=== PATIENT | male | born 1975 | race Two or more races ===

== ENCOUNTER → 2020-06-15 09:21 | Outpatient (BNVA) | payer OTHER, SELFPAY | PROVIDERS: PCP Internal Medicine; Referring Provider Internal Medicine; Visit Provider Internal Medicine | DX: E11.65 Type 2 diabetes mellitus with hyperglycemia (principal); E78.5 Hyperlipidemia, unspecified; I10 Essential (primary) hypertension; Z79.84 Long term (current) use of oral hypoglycemic drugs; Z71.3 Dietary counseling and surveillance | CPT/HCPCS: 99212 ==

== ENCOUNTER 2020-09-09 11:50 | Outpatient (REF) | payer OTHER, SELFPAY ==
[2020-09-09 13:31] LABS: Alanine Aminotransferase 40 U/L (0-40); Albumin Level 4.4 g/dL (3.5-5.0); Alkaline Phosphatase 73 U/L (39-117); Aspartate Amino Transferase 26 U/L (5-37); Bilirubin Total 0.6 mg/dL (0.0-1.0); Blood Urea Nitrogen 15 mg/dL (9-16); Calcium 9.2 mg/dL (8.4-10.2); Carbon Dioxide 28 mmol/L (22-29); Cholesterol 111 mg/dL; Estimated Glomerular Filt Rate > 60; Glucose Random 239 mg/dL (60-115); HDL Cholesterol 34 mg/dL; LDL Cholesterol Calculated 56 mg/dl; Potassium 4.8 mmol/l (3.3-5.1); Sodium 137 mmol/L (135-145); Total Protein 7.4 g/dL (6.5-8.0); Triglycerides 109 mg/dL
[2020-09-09 13:32] LABS: Vitamin B12 413 pg/mL (200-900)
[2020-09-09 13:42] LABS: Anion Gap 3 (12-20); Chloride 111 mmol/L (96-108)
[2020-09-09 13:47] LABS: Estimated Average Glucose 203 mg/dL; Hemoglobin A1c % 8.7 %
[2020-09-10 11:03] LABS: LDL Cholesterol Direct 68 mg/dL (<100)
== END 2020-09-09 11:51 | disposition home or self-care (01) ==
LOC: HO.LAB 11:50
PROVIDERS: Internal Medicine; PCP Internal Medicine; Visit Provider Internal Medicine
DX: E11.9 Type 2 diabetes mellitus without complications (principal); E66.01 Morbid (severe) obesity due to excess calories; I10 Essential (primary) hypertension; R14.0 Abdominal distension (gaseous)
CPT/HCPCS: 36415; 80053; 80061; 82607; 83036; 83721; 87338

== ENCOUNTER 2021-01-04 10:41 | Outpatient (REF) | payer OTHER, SELFPAY ==
[2021-01-04 12:08] LABS: Estimated Average Glucose 206 mg/dL; Hemoglobin A1c % 8.8 %
[2021-01-04 12:20] LABS: Alanine Aminotransferase 62 U/L (0-40); Albumin Level 4.6 g/dL (3.5-5.0); Alkaline Phosphatase 83 U/L (39-117); Anion Gap 14 (12-20); Aspartate Amino Transferase 38 U/L (5-37); Bilirubin Total 0.8 mg/dL (0.0-1.0); Blood Urea Nitrogen 13 mg/dL (9-16); Calcium 9.5 mg/dL (8.4-10.2); Carbon Dioxide 27 mmol/L (22-29); Chloride 102 mmol/L (96-108); Estimated Glomerular Filt Rate > 60; Glucose Random 167 mg/dL (60-115); Potassium 4.3 mmol/L (3.3-5.1); Sodium 139 mmol/L (135-145); Total Protein 7.9 g/dL (6.5-8.0)
== END 2021-01-04 10:42 | disposition home or self-care (01) ==
LOC: HO.LAB 10:41
PROVIDERS: PCP Internal Medicine; Visit Provider Internal Medicine
DX: E11.65 Type 2 diabetes mellitus with hyperglycemia (principal); B96.81 Helicobacter pylori [H. pylori] as the cause of diseases classified elsewhere
CPT/HCPCS: 36415; 80053; 83036

== ENCOUNTER 2021-04-10 12:58 | Emergency (ER) | payer OTHER, SELFPAY ==
[2021-04-10 15:36] VITALS: BP 93/59; PULSE 84; RESP 16; TEMP 36.6; O2SAT 94; BMI 41.1
--- NOTE | 2021-04-10 15:40 | ECG_ITS ---
Test Reason : CRAMP Blood Pressure : / mmHG Vent. Rate : 085 BPM Atrial Rate : 085 BPM P-R Int : 162 ms QRS Dur : 090 ms QT Int : 378 ms P-R-T Axes : 036 -02 -01 degrees QTc Int : 449 ms Normal sinus rhythm Minimal voltage criteria for LVH, may be normal variant Borderline ECG When compared with ECG of 28-MAY-2019 14:04, No significant change was found Referred By: Generic ED Physician Electronically Signed By:MIRIAN SERNA
[2021-04-10 15:52] LABS: MANUAL DIFF FLAG NO
[2021-04-10 16:03] LABS: Basophils Percent Auto 0.3 % (0-2); Eosinophils Absolute Auto 0.1 X10*3/uL (0.0-0.4); Eosinophils Percent Auto 0.4 % (0-4); Hematocrit 49.5 % (42-52); Hemoglobin 17.1 g/dl (14.0-18.0); Imm Gran Abs Auto 0.04 X10*3/uL (0.00-0.03); Imm Gran Pct Auto 0.3 % (0.0-0.4); Lymphocytes Absolute Auto 2.3 X10*3/uL (1.2-4.9); Lymphocytes Percent Auto 19.6 % (20-40); Mean Corpuscular HGB Conc 34.5 g/dl (31.0-36.0); Mean Corpuscular Hemoglobin 29.3 pg (27.0-33.0); Mean Corpuscular Volume 84.8 fL (80-98); Mean Platelet Volume 11.3 fL (9.4-12.4); Monocytes Absolute Auto 0.7 X10*3/uL (0.1-1.2); Monocytes Percent Auto 5.6 % (2-11); Neutrophils Absolute Auto 8.7 X10*3/uL (2.0-8.3); Neutrophils Percent Auto 73.8 % (45-73); Platelet Count 230 X10*3/uL (160-400); Red Blood Count 5.84 X10*6/uL (4.60-5.80); Red Cell Distribution Width 12.5 % (11.0-16.0); White Blood Count 11.8 X10*3/uL (4.8-10.8)
[2021-04-10 16:23] LABS: Lactic Acid 2.5 mmol/L (0.5-2.0)
[2021-04-10 16:25] LABS: Alanine Aminotransferase 46 U/L (0-40); Albumin Level 4.9 g/dL (3.5-5.0); Alkaline Phosphatase 74 U/L (39-117); Anion Gap 17 (12-20); Aspartate Amino Transferase 36 U/L (5-37); Bilirubin Total 0.9 mg/dL (0.0-1.0); Blood Urea Nitrogen 33 mg/dL (9-16); Calcium 10.5 mg/dL (8.4-10.2); Carbon Dioxide 25 mmol/L (22-29); Chloride 98 mmol/L (96-108); Creatinine Clr Calc Pharmacy 57.3; Estimated Glomerular Filt Rate 40; Glucose Random 175 mg/dL (60-115); Magnesium 2.4 mg/dL (1.6-2.6); Sodium 135 mmol/L (135-145); Total Protein 8.4 g/dL (6.5-8.0)
[2021-04-10 16:26] LABS: Troponin-I High Sensitivity < 3.5 ng/L (<3.5-35.0)
[2021-04-10 17:50] LABS: Reflex Lactate? Lactic Acid Added
[2021-04-10 18:39] LABS: ~Lactic Acid-LAB USE ONLY 1.8 mmol/L (0.5-2.0)
--- NOTE | 2021-04-10 20:00 | ED.GENADULT ---
HPI - General Adult General Chief complaint: General Medical Stated complaint: cramps Time Seen by Provider: 04/10/21 19:49 Source: patient Mode of arrival: ambulatory Limitations: no limitations History of Present Illness HPI narrative: 46 y/o male with history of DM, HTN, HLD, depression who presents to the ER with diffuse body cramping for the last 2 days. He reports with minimal movement his muscles cramp up. He feels like he is dehydrated. He tries to drink as much water a he can throughout the day but he reports being prone to dehydration with this heat and humidity. He has always had issues with excessive sweating since he can remember. He denies fever, chills, SOB, chest pain, abdominal pain, N/V/D. MD complaint: muscle cramping Onset (ago): day(s) (2) Location: back, buttocks, left, right and lower extremity Radiation: non-radiation Severity: severe Quality: aching Pain Consistency: intermittent Relieving factors: rest Exacerbating factors: movement Associated symptoms: denies other symptoms Treatments prior to arrival: none Related Data Home Medications Medication Instructions Recorded Confirmed alcohol swabs 0 pad TOPICAL 06/15/20 06/15/20 blood sugar diagnostic #10 ea 06/15/20 06/15/20 clonazepam 1 mg tablet 1 mg PO TID PRN 06/15/20 06/15/20 empagliflozin 25 mg tablet 25 mg PO DAILY 06/15/20 06/15/20 estazolam 2 mg tablet 2 mg PO BEDTIME PRN 06/15/20 06/15/20 glycopyrrolate 1 mg tablet 1 mg PO BEDTIME PRN tab 06/15/20 06/15/20 lancets 28 gauge #100 ea 06/15/20 06/15/20 lisinopril 20 1 tab PO DAILY 06/15/20 06/15/20 mg-hydrochlorothiazide 25 mg tablet metformin 500 mg tablet,extended 1,000 mg PO BID 06/15/20 06/15/20 release 24 hr sertraline 100 mg tablet 100 mg PO DAILY 06/15/20 06/15/20 Previous Rx's Medication Instructions Recorded sitagliptin 100 mg tablet (Januvia) 100 mg PO DAILY 30 Days #30 tab 06/01/20 atorvastatin 40 mg tablet 40 mg PO DAILY 30 Days #30 tab 06/15/20 blood sugar diagnostic (Blood #100 ea 06/27/20 Glucose Test) cholecalciferol (vitamin D3) 50 50 mcg PO DAILY 30 Days #30 tab 07/21/20 mcg (2,000 unit) tablet Allergies Allergy/AdvReac Type Severity Reaction Status Date / Time No Known Allergies Allergy Verified 06/15/20 09:17 [No Known Allergies*] Review of Systems Review of Systems: Constitutional: No Fever, No Chills ENT/Mouth: No sore throat, No Rhinorrhea, No Swallowing Difficulty Cardiovascular: No Chest Pain, No SOB Respiratory: No Cough, No Sputum Gastrointestinal: No Nausea, No Vomiting, No Diarrhea, No abdominal Pain Genitourinary: No Dysuria, No Urinary Frequency, No Hematuria Musculoskeletal: No joint pain, + Myalgias Skin: No Skin Lesions, No rash Neuro: No Weakness, No Numbness, No Dizziness, No Headache PMFSH Past Medical History Attestation statement: The following information was validated with the patient. Medical History Depression HLD (hyperlipidemia) HTN (hypertension) T2DM (type 2 diabetes mellitus) Surgical History Hx of arthroscopy Hx of hernia repair Family History Family History Father Alcoholism Diabetes mellitus HTN (hypertension) Mother No problems noted. Sister Diabetes mellitus Social History Social History Advance Directives: No Advance Directives Information Provided: No Physical Exam Vital Signs: Vital Signs: Last Vital Signs Temp 97.9 F 04/10/21 15:36 Pulse 80 04/10/21 21:57 Resp 16 04/10/21 21:57 BP 119/70 04/10/21 21:57 Pulse Ox 98 04/10/21 21:57 Body Mass Index 41.1 Appearance: Alert. Oriented X3. No acute distress. Eyes: Pupils equal, round and reactive to light. ENT: Pharynx normal. Neck: Normal inspection. Neck supple. CVS: Normal heart rate and rhythm. Pulses normal. Respiratory: No respiratory distress. Breath sounds normal. Abdomen: Soft and nontender. +BS x4 Skin: Skin warm and dry. Normal skin color. Normal skin turgor. No rashes. Extremities: No lower extremity edema. Neuro: Oriented X 3. No motor deficit. No sensory deficit. Course Course Course Narrative: 46 y/o male presenting with muscle cramping and concerns for dehydration. Labs showing NIKO with BUN/Cr 33/1.82. Lactic acid 2.5 which normalized to 1.8 without intervention. Not septic. His Mg++ and K+ are normal. CK 277. Will plan to hydrate with IVF and reassess. Reevaluation(s) Reevaluation #1: Patient given 2 L IVF and he is feeling much better. Urine is clear yellow. He will follow up with his doctor for repeat labs within 1 week. Stable for d/c home. Medical Decision Making Lab Data Result diagrams: 04/10/21 15:47 04/10/21 15:47 Labs: Lab Results 04/10/21 04/10/21 04/10/21 Range/Units 15:47 15:47 15:47 WBC 11.8 H (4.8-10.8) X10*3/uL RBC 5.84 H (4.60-5.80) X10*6/uL Hgb 17.1 (14.0-18.0) g/dl Hct 49.5 (42-52) % MCV 84.8 (80-98) fL MCH 29.3 (27.0-33.0) pg MCHC 34.5 (31.0-36.0) g/dl RDW 12.5 (11.0-16.0) % Plt Count 230 (160-400) X10*3/uL MPV 11.3 (9.4-12.4) fL Immature Gran % (Auto) 0.3 (0.0-0.4) % Neut % (Auto) 73.8 H (45-73) % Lymph % (Auto) 19.6 L (20-40) % [place] % (Auto) 5.6 (2-11) % Eos % (Auto) 0.4 (0-4) % Baso % (Auto) 0.3 (0-2) % Lymph # (Auto) 2.3 (1.2-4.9) X10*3/uL [place] # (Auto) 0.7 (0.1-1.2) X10*3/uL Eos # (Auto) 0.1 (0.0-0.4) X10*3/uL Baso # (Auto) 0.0 (0.0-0.2) X10*3/uL Abs Immat Gran (auto) 0.04 H (0.00-0.03) X10*3/uL Absolute Neuts (auto) 8.7 H (2.0-8.3) X10*3/uL Absolute Nucleated RBC 0.000 (0.0-0.012) X10*3/uL Nucleated RBC % (auto) 0.0 (0.0-0.2) /100WBC Sodium 135 (135-145) mmol/L Potassium 5.0 (3.3-5.1) mmol/L Chloride 98 (96-108) mmol/L Carbon Dioxide 25 (22-29) mmol/L Anion Gap 17 (12-20) BUN 33 H D (9-16) mg/dL Creatinine 1.82 H (0.5-1.4) mg/dL Estim Creat Clear Calc 57.3 Estimated GFR 40 Random Glucose 175 H (60-115) mg/dL Lactic Acid 2.5 H* (0.5-2.0) mmol/L Lactic Acid Fup @ 2Hr (0.5-2.0) mmol/L Calcium 10.5 H D (8.4-10.2) mg/dL Magnesium 2.4 (1.6-2.6) mg/dL Total Bilirubin 0.9 (0.0-1.0) mg/dL AST 36 (5-37) U/L ALT 46 H (0-40) U/L Alkaline Phosphatase 74 (39-117) U/L Total Creatine Kinase (38-174) U/L Troponin I High Sens (<3.5-35.0) ng/L Total Protein 8.4 H (6.5-8.0) g/dL Albumin 4.9 (3.5-5.0) g/dL Urine Color Urine Appearance Urine pH (5.0-8.0) Ur Specific [place] (1.005-1.025) Urine Protein (NEG-TRACE) MG/DL Urine Glucose (UA) (NEG) MG/DL Urine Ketones (NEG) MG/DL Urine Blood (NEG) Urine Nitrite (NEG) Ur Leukocyte Esterase (NEG) Urine RBC (0) /HPF Urine WBC (0-4) /HPF Ur Squamous Epith Cells /LPF Urine Bacteria /LPF Coronavirus (PCR) (Negative) Influenza Type A (PCR) (Negative) Influenza Type B (PCR) (Negative) RSV RNA Qual (PCR) (Negative) 04/10/21 04/10/21 04/10/21 Range/Units 15:47 15:47 18:11 WBC (4.8-10.8) X10*3/uL RBC (4.60-5.80) X10*6/uL Hgb (14.0-18.0) g/dl Hct (42-52) % MCV (80-98) fL MCH (27.0-33.0) pg MCHC (31.0-36.0) g/dl RDW (11.0-16.0) % Plt Count (160-400) X10*3/uL MPV (9.4-12.4) fL Immature Gran % (Auto) (0.0-0.4) % Neut % (Auto) (45-73) % Lymph % (Auto) (20-40) % [place] % (Auto) (2-11) % Eos % (Auto) (0-4) % Baso % (Auto) (0-2) % Lymph # (Auto) (1.2-4.9) X10*3/uL [place] # (Auto) (0.1-1.2) X10*3/uL Eos # (Auto) (0.0-0.4) X10*3/uL Baso # (Auto) (0.0-0.2) X10*3/uL Abs Immat Gran (auto) (0.00-0.03) X10*3/uL Absolute Neuts (auto) (2.0-8.3) X10*3/uL Absolute Nucleated RBC (0.0-0.012) X10*3/uL Nucleated RBC % (auto) (0.0-0.2) /100WBC Sodium (135-145) mmol/L Potassium (3.3-5.1) mmol/L Chloride (96-108) mmol/L Carbon Dioxide (22-29) mmol/L Anion Gap (12-20) BUN (9-16) mg/dL Creatinine (0.5-1.4) mg/dL Estim Creat Clear Calc Estimated GFR Random Glucose (60-115) mg/dL Lactic Acid (0.5-2.0) mmol/L Lactic Acid Fup @ 2Hr 1.8 (0.5-2.0) mmol/L Calcium (8.4-10.2) mg/dL Magnesium (1.6-2.6) mg/dL Total Bilirubin (0.0-1.0) mg/dL AST (5-37) U/L ALT (0-40) U/L Alkaline Phosphatase (39-117) U/L Total Creatine Kinase 277 H (38-174) U/L Troponin I High Sens < 3.5 (<3.5-35.0) ng/L Total Protein (6.5-8.0) g/dL Albumin (3.5-5.0) g/dL Urine Color Urine Appearance Urine pH (5.0-8.0) Ur Specific [place] (1.005-1.025) Urine Protein (NEG-TRACE) MG/DL Urine Glucose (UA) (NEG) MG/DL Urine Ketones (NEG) MG/DL Urine Blood (NEG) Urine Nitrite (NEG) Ur Leukocyte Esterase (NEG) Urine RBC (0) /HPF Urine WBC (0-4) /HPF Ur Squamous Epith Cells /LPF Urine Bacteria /LPF Coronavirus (PCR) (Negative) Influenza Type A (PCR) (Negative) Influenza Type B (PCR) (Negative) RSV RNA Qual (PCR) (Negative) 04/10/21 04/10/21 Range/Units 20:16 20:17 WBC (4.8-10.8) X10*3/uL RBC (4.60-5.80) X10*6/uL Hgb (14.0-18.0) g/dl Hct (42-52) % MCV (80-98) fL MCH (27.0-33.0) pg MCHC (31.0-36.0) g/dl RDW (11.0-16.0) % Plt Count (160-400) X10*3/uL MPV (9.4-12.4) fL Immature Gran % (Auto) (0.0-0.4) % Neut % (Auto) (45-73) % Lymph % (Auto) (20-40) % [place] % (Auto) (2-11) % Eos % (Auto) (0-4) % Baso % (Auto) (0-2) % Lymph # (Auto) (1.2-4.9) X10*3/uL [place] # (Auto) (0.1-1.2) X10*3/uL Eos # (Auto) (0.0-0.4) X10*3/uL Baso # (Auto) (0.0-0.2) X10*3/uL Abs Immat Gran (auto) (0.00-0.03) X10*3/uL Absolute Neuts (auto) (2.0-8.3) X10*3/uL Absolute Nucleated RBC (0.0-0.012) X10*3/uL Nucleated RBC % (auto) (0.0-0.2) /100WBC Sodium (135-145) mmol/L Potassium (3.3-5.1) mmol/L Chloride (96-108) mmol/L Carbon Dioxide (22-29) mmol/L Anion Gap (12-20) BUN (9-16) mg/dL Creatinine (0.5-1.4) mg/dL Estim Creat Clear Calc Estimated GFR Random Glucose (60-115) mg/dL Lactic Acid (0.5-2.0) mmol/L Lactic Acid Fup @ 2Hr (0.5-2.0) mmol/L Calcium (8.4-10.2) mg/dL Magnesium (1.6-2.6) mg/dL Total Bilirubin (0.0-1.0) mg/dL AST (5-37) U/L ALT (0-40) U/L Alkaline Phosphatase (39-117) U/L Total Creatine Kinase (38-174) U/L Troponin I High Sens (<3.5-35.0) ng/L Total Protein (6.5-8.0) g/dL Albumin (3.5-5.0) g/dL Urine Color YELLOW Urine Appearance CLEAR Urine pH 5.5 (5.0-8.0) Ur Specific [place] 1.010 (1.005-1.025) Urine Protein NEG (NEG-TRACE) MG/DL Urine Glucose (UA) >=1000 H (NEG) MG/DL Urine Ketones NEG (NEG) MG/DL Urine Blood NEG (NEG) Urine Nitrite NEG (NEG) Ur Leukocyte Esterase NEG (NEG) Urine RBC 0 (0) /HPF Urine WBC 0 (0-4) /HPF Ur Squamous Epith Cells NONE /LPF Urine Bacteria NONE /LPF Coronavirus (PCR) NEGATIVE (Negative) Influenza Type A (PCR) NEGATIVE (Negative) Influenza Type B (PCR) NEGATIVE (Negative) RSV RNA Qual (PCR) NEGATIVE (Negative) ECG Data Attestation: I personally reviewed and interpreted this ECG as follows: Interpretation: normal sinus rhythm, HR 85 bpm. normal [place] interval, no ST segment elevations or depressions. Critical Care Time Critical Care Time Critical Care Time: No Discharge Plan Discharge Clinical Impression: Acute dehydration, NIKO (acute kidney injury) Patient Disposition: Home, Self-Care Instructions: Dehydration (ED), Acute Kidney Injury (DC) Additional Instructions: Drink plenty of fluids. Follow up with your doctor within 1 week to repeat your electrolytes and kidney function. If you develop new or worsening symptoms call 911 or come back to the ER for further evaluation. Prescriptions: No Action Januvia 100 mg tablet 100 mg PO DAILY 30 Days Qty: 30 RF: 11 (DME) Blood Glucose Test Strip See Rx Instructions .ROUTE .MEDSUPPLY Qty: 100 RF: 11 cholecalciferol (vitamin D3) 50 mcg (2,000 unit) tablet 50 mcg PO DAILY 30 Days Qty: 30 RF: 11 Jardiance 25 mg tablet 25 mg PO DAILY RF: 0 (DME) lancets 28 gauge misc See Rx Instructions ea topical .MEDSUPPLY Qty: 100 RF: 0 metformin 500 mg tablet extended release 24 hr 1,000 mg PO BID RF: 0 alcohol swabs Pads, Medicated 0 pad topical RF: 0 lisinopril-hydrochlorothiazide 20-25 mg tablet 1 tab PO DAILY RF: 0 (DME) FreeStyle Lite Strips Strip See Rx Instructions ea Not Applicable .MEDSUPPLY Qty: 10 RF: 0 sertraline 100 mg tablet 100 mg PO DAILY RF: 0 clonazepam 1 mg tablet 1 mg PO TID PRNRF: 0 estazolam 2 mg tablet 2 mg PO BEDTIME PRNRF: 0 glycopyrrolate 1 mg tablet 1 mg PO BEDTIME PRNRF: 0 atorvastatin 40 mg tablet 40 mg PO DAILY 30 Days Qty: 30 RF: 11 Referrals: Irma Rebolledo MD [Primary Care Provider] - 5 days (mild NIKO, dehydration) Interventions: ED Discharge Assessment Last Done: 04/10/21 22:39 Discharge Date/Time: 04/10/21 22:40
[2021-04-10] MEDS: 0.9 % Sodium Chloride 1,000 ML 999 ML IVCONT ×2 (20:18→20:28)
[2021-04-10 20:23] LABS: Glucose Urine UA >=1000 MG/DL (NEG); Leukocyte Esterase Urine NEG (NEG); Nitrite Urine NEG (NEG); PH 5.5 (5.0-8.0); Urine Blood NEG (NEG); Urine Ketones NEG (NEG); Urine Protein NEG (NEG-TRACE)
[2021-04-10 20:25] LABS: Appearance Urine CLEAR; Color Urine YELLOW
[2021-04-10 20:31] LABS: RBC Urine 0 /HPF (0); WBC Urine 0 /HPF (0-4)
[2021-04-10 21:03] LABS: Influenza A PCR NEGATIVE (Negative); Influenza B PCR NEGATIVE (Negative); Resp Syncy Virus RNA Qual PCR NEGATIVE (Negative); SARS COV2 PCR INHOUSE NEGATIVE (Negative)
[2021-04-10 21:57] VITALS: BP 119/70; PULSE 80; RESP 16; O2SAT 98
== END 2021-04-10 22:40 | disposition home or self-care (01) ==
PROVIDERS: Physician Assistant; Emergency Provider Internal Medicine; PCP Internal Medicine
DX: E86.0 Dehydration (principal); R25.2 Cramp and spasm; N17.9 Acute kidney failure, unspecified; I10 Essential (primary) hypertension; Z20.822 Contact with and (suspected) exposure to COVID-19; Z79.899 Other long term (current) drug therapy
CPT/HCPCS: 0241U; 36415; 80053; 81001; 82550; 83605; 83735; 84484; 85025; 93005; 96360; 99284

== ENCOUNTER 2021-04-28 11:23 | Outpatient (REF) | payer OTHER, SELFPAY ==
[2021-04-28 11:54] LABS: MANUAL DIFF FLAG NO
[2021-04-28 11:58] LABS: Basophils Percent Auto 0.1 % (0-2); Eosinophils Absolute Auto 0.1 X10*3/uL (0.0-0.4); Eosinophils Percent Auto 0.7 % (0-4); Imm Gran Abs Auto 0.02 X10*3/uL (0.00-0.03); Imm Gran Pct Auto 0.3 % (0.0-0.4); Lymphocytes Absolute Auto 1.6 X10*3/uL (1.2-4.9); Lymphocytes Percent Auto 21.3 % (20-40); Mean Corpuscular HGB Conc 34.1 g/dl (31.0-36.0); Mean Corpuscular Hemoglobin 29.4 pg (27.0-33.0); Mean Corpuscular Volume 86.3 fL (80-98); Mean Platelet Volume 10.9 fL (9.4-12.4); Monocytes Absolute Auto 0.3 X10*3/uL (0.1-1.2); Monocytes Percent Auto 4.4 % (2-11); Neutrophils Absolute Auto 5.6 X10*3/uL (2.0-8.3); Neutrophils Percent Auto 73.2 % (45-73); Platelet Count 177 X10*3/uL (160-400); Red Cell Distribution Width 12.3 % (11.0-16.0); White Blood Count 7.7 X10*3/uL (4.8-10.8)
[2021-04-28 12:08] LABS: Estimated Average Glucose 220 mg/dL; Hemoglobin A1c % 9.3 %
[2021-04-28 12:19] LABS: Alanine Aminotransferase 49 U/L (0-40); Albumin Level 4.5 g/dL (3.5-5.0); Alkaline Phosphatase 64 U/L (39-117); Anion Gap 11 (12-20); Aspartate Amino Transferase 35 U/L (5-37); Bilirubin Total 0.8 mg/dL (0.0-1.0); Blood Urea Nitrogen 13 mg/dL (9-16); Carbon Dioxide 30 mmol/L (22-29); Chloride 104 mmol/L (96-108); Cholesterol 103 mg/dL; Estimated Glomerular Filt Rate > 60; Glucose Random 141 mg/dL (60-115); HDL Cholesterol 30 mg/dL; LDL Cholesterol Calculated 53 mg/dl; Potassium 4.7 mmol/L (3.3-5.1); Sodium 140 mmol/L (135-145); Total Protein 7.6 g/dL (6.5-8.0); Triglycerides 103 mg/dL
[2021-04-28 13:01] LABS: Creatinine Urine 76.15 mg/dL; Microalbum/Creatinine Ratio Ur 14.4 ug/mg cr
== END 2021-04-28 11:24 | disposition home or self-care (01) ==
LOC: HO.LAB 11:23
PROVIDERS: PCP Internal Medicine; Visit Provider Internal Medicine
DX: E11.65 Type 2 diabetes mellitus with hyperglycemia (principal); E78.00 Pure hypercholesterolemia, unspecified; B96.81 Helicobacter pylori [H. pylori] as the cause of diseases classified elsewhere; G47.33 Obstructive sleep apnea (adult) (pediatric); I10 Essential (primary) hypertension; R74.01 Elevation of levels of liver transaminase levels
CPT/HCPCS: 36415; 80053; 80061; 82043; 83036; 85025

== ENCOUNTER → 2021-08-21 10:00 | Outpatient (BNVA) | payer OTHER, SELFPAY | PROVIDERS: PCP Internal Medicine; Visit Provider Internal Medicine | CPT/HCPCS: Q3014 ==

== ENCOUNTER 2021-11-16 13:20 | Outpatient (REF) | payer OTHER, SELFPAY ==
[2021-11-16 14:15] LABS: Estimated Average Glucose 169 mg/dL; Hemoglobin A1c % 7.5 %
[2021-11-16 14:32] LABS: Creatinine Urine 180.05 mg/dL; Microalbum/Creatinine Ratio Ur 8.8 ug/mg cr
[2021-11-16 14:35] LABS: Alanine Aminotransferase 58 U/L (0-40); Albumin Level 4.8 g/dL (3.5-5.0); Alkaline Phosphatase 62 U/L (39-117); Anion Gap 11 (12-20); Aspartate Amino Transferase 42 U/L (5-37); Bilirubin Total 0.7 mg/dL (0.0-1.0); Blood Urea Nitrogen 15 mg/dL (9-16); Calcium 10.3 mg/dL (8.4-10.2); Carbon Dioxide 32 mmol/L (22-29); Chloride 101 mmol/L (96-108); Cholesterol 124 mg/dL; Estimated Glomerular Filt Rate 56; Glucose Random 83 mg/dL (60-115); HDL Cholesterol 38 mg/dL; LDL Cholesterol Calculated 69 mg/dl; Potassium 4.9 mmol/L (3.3-5.1); Sodium 139 mmol/L (135-145); Total Protein 8.2 g/dL (6.5-8.0); Triglycerides 87 mg/dL
[2021-11-17 17:22] LABS: LDL Cholesterol Direct 74 mg/dL (<100)
== END 2021-11-16 13:21 | disposition home or self-care (01) ==
LOC: HO.LAB 13:20
PROVIDERS: Absent Provider Internal Medicine; PCP Internal Medicine; Visit Provider Internal Medicine
DX: E11.65 Type 2 diabetes mellitus with hyperglycemia (principal); E78.00 Pure hypercholesterolemia, unspecified; I10 Essential (primary) hypertension
CPT/HCPCS: 36415; 80053; 80061; 82043; 83036; 83721

== ENCOUNTER 2021-12-04 18:52 | Emergency (ER) | payer OTHER, SELFPAY ==
--- NOTE | ~2021-12-04 | XR_ITS ---
EXAMINATION: XR RIBS, RIGHT CLINICAL INFORMATION: Fall. Rib pain. COMPARISON: None TECHNIQUE: 3 views of the right ribs were obtained. PA view of the chest. FINDINGS: Lungs are clear. No consolidation, pneumothorax, or pleural effusion. The cardiomediastinal silhouette and pulmonary vasculature are normal. Osseous structures are unremarkable. A marker overlies the lower right ribs. Ribs are intact. No fractures are identified. XR/XR ribs RT min 3V w CXR1V IMPRESSION: Clear lungs. No focal rib abnormality identified.
--- NOTE | ~2021-12-04 | CT_ITS ---
EXAMINATION: CT CHEST, ABDOMEN AND PELVIS WITH CONTRAST. CLINICAL INFORMATION: Reason for Exam fall abd pain r/o rib fx and bleeding . COMPARISON: No pertinent prior studies are available for comparison. TECHNIQUE: Multidetector volumetric imaging was performed from the thoracic inlet through the pubic symphysis following the administration of: Oral contrast: No Intravenous contrast: 85 mL Omnipaque 350 No contrast reaction reported Sagittal and coronal reformatted images were obtained on the technologist workstation. This CT examination was performed using dose optimization techniques as appropriate, variously including the following: *Automated exposure control *Adjustment of mA and/or kV according to patient size (this includes techniques or standardized protocols for targeted exams where dose is matched to indication/reason for exam; i.e. extremities or head) *Use of iterative reconstruction technique Total exam dose-length product 1250 mGy-cm FINDINGS: CHEST: VASCULAR: The aorta is normal; no evidence of dissection, aneurysm, or traumatic aortic injury. The central pulmonary arteries enhance normally. AORTIC ISTHMUS: Normal. MEDIASTINUM: No mediastinal fluid or hematoma. No hilar or mediastinal lymphadenopathy. LUNG: No nodules, mass, or focal consolidation. PLEURA: No pleural effusion. No pneumothorax. No pleural mass or thickening. CHEST WALL/AXILLA: Moderate bilateral gynecomastia is present. ABDOMEN/PELVIS : LIVER : The liver is enlarged measuring just under 20 cm in greatest cephalocaudad dimension.. It also demonstrates decreased attenuation with focal fatty sparing consistent with hepatic steatosis. No focal hepatic lesion or biliary ductal dilatation is present. GALLBLADDER, AND BILIARY TREE The gallbladder is unremarkable with no evidence of radiopaque gallstones, gallbladder wall thickening, or obvious pericholecystic inflammatory changes. PANCREAS: Normal; no mass or surrounding fluid. SPLEEN: Normal size. No focal lesion. ADRENAL GLANDS: Normal; no mass. KIDNEYS AND URETERS: The kidneys are normal in size, shape, and attenuation. No hydronephrosis, hydroureter, or calculi. URINARY BLADDER: No focal mass or wall thickening seen. No bladder calculi. GASTROINTESTINAL TRACT: Stomach and small bowel non-dilated. No colonic wall thickening or pericolonic inflammatory changes. Although the appendix is not definitely seen, there are no right lower quadrant inflammatory changes to suggest acute appendicitis. There is a fatty ovoid area lateral to the descending colon which may represent old infarcted epiploic appendage. VASCULAR STRUCTURES: There is no evidence of aortic or iliac injury. The inferior vena cava is intact. ACTIVE BLEEDING: No. LYMPH NODES: No lymphadenopathy. The aorta is unremarkable. PELVIC VISCERA: Unremarkable. FREE FLUID: None. ABDOMINAL WALL: A left inguinal hernias present containing only fat. OSSEOUS STRUCTURES : No clavicle or scapula fracture. No displaced rib fracture seen. No sternal fracture seen. Normal sagittal alignment of the thoracic and lumbar spine. Vertebral body and disc heights are maintained; no compression fracture. Posterior elements intact. No sacral or pelvic fracture, The visualized hips are intact. CT/CT abdomen pelvis w con IMPRESSION: 1. No evidence of a traumatic injury in the chest abdomen or pelvis. 2. Incidental findings as described
[2021-12-04 20:32] VITALS: BP 158/108; PULSE 102; RESP 20; TEMP 37.1; O2SAT 96; BMI 40.8
--- NOTE | 2021-12-04 21:12 | ED.FALL ---
HPI - Fall General Chief Complaint: Fall Stated Complaint: fell back, right leg, right side pain Time Seen by Provider: 12/04/21 21:10 Source: patient Mode of arrival: ambulatory Limitations: no limitations History of Present Illness HPI Narrative: This is a 46-year-old male past medical history significant for hyperlipidemia, hypertension, diabetes presenting to the emergency department with complaints of right-sided rib pain since Saturday, 3 days ago. Patient tells me was at the bar, tripped over a step, falling onto his right side. Immediately started experiencing pain to the area. He also reports that since Saturday he has noted that his abdomen has been more distended than usual and this is not normal for him. He reports severe sharp pain to his right side. He denies chest pain, shortness of breath, nausea, vomiting, abdominal pain, fevers, chills, headache, vision changes. When he fell he did not his head no loss of consciousness. MD complaint: fall Onset (ago): day(s) (3) Fall from: standing Fall witnessed: no Place fall occurred: other (Bar) Loss of consciousness: none Prolonged down time: no Symptoms prior to fall: none Context: tripped/slipped Severity: moderate Quality: sharp Associated symptoms (after fall): denies Related Data Home Medications Medication Instructions Recorded Confirmed alcohol swabs 0 pad TOPICAL 06/15/20 08/21/21 clonazepam 1 mg tablet 1 mg PO TID PRN 06/15/20 08/21/21 empagliflozin 25 mg tablet 25 mg PO DAILY 06/15/20 08/21/21 estazolam 2 mg tablet 2 mg PO BEDTIME PRN 06/15/20 08/21/21 glycopyrrolate 1 mg tablet 1 mg PO BEDTIME PRN tab 06/15/20 08/21/21 lisinopril 20 1 tab PO DAILY 06/15/20 08/21/21 mg-hydrochlorothiazide 25 mg tablet metformin 500 mg tablet,extended 1,000 mg PO BID 06/15/20 08/21/21 release 24 hr sertraline 100 mg tablet 100 mg PO DAILY 06/15/20 08/21/21 amlodipine 5 mg tablet 5 mg PO DAILY 08/21/21 08/21/21 blood sugar diagnostic (FreeStyle 08/21/21 08/21/21 Lite Strips) blood-glucose meter (FreeStyle 08/21/21 08/21/21 Lite Meter) diclofenac sodium 75 mg 75 mg PO BID 08/21/21 08/21/21 tablet,delayed release dulaglutide 0.75 mg/0.5 mL 0.75 mg SUBCUT QWEEK ml 08/21/21 08/21/21 subcutaneous pen injector (Trulicity) glimepiride 4 mg tablet 4 mg PO DAILY 08/21/21 08/21/21 lancets 28 gauge #100 ea 08/21/21 08/21/21 omeprazole 40 mg capsule,delayed 40 mg PO DAILY 08/21/21 08/21/21 release Previous Rx's Medication Instructions Recorded sitagliptin 100 mg tablet (Januvia) 100 mg PO DAILY 30 Days #30 tab 06/01/20 cholecalciferol (vitamin D3) 50 50 mcg PO DAILY 30 Days #30 tab 07/21/20 mcg (2,000 unit) tablet atorvastatin 40 mg tablet 40 mg PO DAILY 30 Days #30 tab 08/02/21 cyclobenzaprine 10 mg tablet 10 mg PO BEDTIME PRN #7 tab 12/05/21 lidocaine 5 % topical patch 1 patch TOPICAL DAILY PRN #15 ea 12/05/21 naproxen 500 mg tablet 500 mg PO BID #14 tab 12/05/21 Allergies Allergy/AdvReac Type Severity Reaction Status Date / Time No Known Allergies Allergy Verified 08/21/21 12:37 [No Known Allergies*] Review of Systems Review of Systems: Constitutional : No Weight loss, No Fever, No Chills, No Fatigue, No Malaise ENT/Mouth : No sore throat, No Rhinorrhea Eyes: No Eye Pain, No Swelling, No Redness Cardiovascular : No Chest Pain, No SOB, No Dyspnea on Exertion, No Orthopnea, No Edema, No Palpitations Respiratory : No Cough, No Sputum, No Wheezing Gastrointestinal : No Nausea, No Vomiting, No Diarrhea, No Constipation, No abdominal Pain, No Hematochezia, No Melena Genitourinary : No Dysuria, No Urinary Frequency, No Hematuria, Musculoskeletal : No joint pain, No Myalgias, No Joint Swelling Skin : No Skin Lesions, No rash Neuro : No Weakness, No Numbness, No Dizziness, No Headache Psych : No Anxiety/Panic, No Depression All other systems reviewed and are negative Yes all other systems are reviewed and are negative FOR[facility]LY [facility] Past Medical History Attestation statement: The following information was validated with the patient. Source: old records reviewed and nursing notes reviewed Medical History Depression HLD (hyperlipidemia) HTN (hypertension) T2DM (type 2 diabetes mellitus) Surgical History Hx of arthroscopy Hx of hernia repair Family History Family History Father Alcoholism Diabetes mellitus HTN (hypertension) Mother No problems noted. Sister Diabetes mellitus Social History Social History Alcohol intake: current Alcohol intake frequency: holidays/special occasions only Patient Tobacco Use Status: Never used Tobacco Advance Directives: No Advance Directives Information Provided: No Physical Exam Vital Signs: Vital Signs: Last Vital Signs Temp 98.7 F 12/04/21 20:32 Pulse 85 12/05/21 00:34 Resp 18 12/05/21 00:50 BP 129/93 H 12/05/21 00:34 Pulse Ox 96 12/05/21 00:34 BMI result Body Mass Index 40.8 Patient is noted to be hypertensive however he did not take his blood pressure medications. I will give him his blood pressure medications here Appearance: Alert.? Oriented X3.? No acute distress.? Head: Normocephalic, atraumatic, no step-offs or deformities Eyes: Pupils equal, round and reactive to light.? ENT: Pharynx normal.? Neck: Normal inspection.? Neck supple.? CVS: Normal heart rate and rhythm.? Pulses normal.? Respiratory: No respiratory distress.? Breath sounds normal.? Abdomen: Soft and nontender.? Skin: Skin warm and dry.? Normal skin color.? Normal skin turgor.? Extremities: No lower extremity edema.? No calf ttp. 5/5 strength to bilateral upper and lower extremities Musculoskeletal: Pain to palpation to right side, overlying the right ribs. No step-offs or deformities, no flail chest noted no paroxysmal breathing. Neuro: Oriented X 3.? No motor deficit.? No sensory deficit. CN 2-12 intact Course Reevaluation(s) Reevaluation #1: CBC within normal limits. Patient is noted to have an elevated bilirubin, transaminases slightly elevated however this appears to be his baseline when compared to previous labs on 11/16/2021. COVID negative. CT of the abdomen, pelvis and chest with no evidence of traumatic injury. No evidence of rib fractures. No evidence of appendicitis, cholecystitis, fractured ribs. Enlarged liver is noted. Pending urine. Will treat patient for musculoskeletal pain with cyclobenzaprine, naproxen and lidocaine patches. Time: 01:09 Reevaluation #2: At time of discharge patient tells me he feels much better. He is still having some discomfort to his right flank however improved. Denies chest pain, shortness of breath, nausea, vomiting upon discharge. Urine is clean. Will be discharged home with PCP follow-up. He will be treated for musculoskeletal pain. Comfortable discharge home Time: 01:45 MDM - Fall MDM Narrative Medical decision making narrative: 2225 46 yo m presents w/ right sided hip pain s/p trip and fall onto his right side 3 days ago PE in his palpation of right side/overlying right-sided ribs. Plan at this time is imaging, lab work to rule out rib fractures,. Unlikely that this is an pneumothorax, breath sounds appreciated bilaterally. Medical Records Attestation: I reviewed the patient's medical records. Lab Data Attestation: I reviewed the patient's lab results. Result diagrams: 12/04/21 21:45 12/04/21 21:45 Labs: Lab Results 12/04/21 12/04/21 12/04/21 Range/Units 21:45 21:45 21:46 WBC 8.2 (4.8-10.8) X10*3/uL RBC 5.52 (4.60-5.80) X10*6/uL Hgb 15.9 (14.0-18.0) g/dl Hct 47.5 (42.0-52.0) % MCV 86.1 (80.0-98.0) fL MCH 28.8 (27.0-33.0) pg MCHC 33.5 (31.0-36.0) g/dl RDW 13.1 (11.0-16.0) % Plt Count 180 (160-400) X10*3/uL MPV 10.4 (9.4-12.4) fL Immature Gran % (Auto) 0.2 (0.0-0.4) % Neut % (Auto) 62.6 (45-73) % Lymph % (Auto) 29.0 (20-40) % Duchesne % (Auto) 6.3 (2-11) % Eos % (Auto) 1.7 (0-4) % Baso % (Auto) 0.2 (0-2) % Lymph # (Auto) 2.4 (1.2-4.9) X10*3/uL Duc[place]ne # (Auto) 0.5 (0.1-1.2) X10*3/uL Eos # (Auto) 0.1 (0.0-0.4) X10*3/uL Baso # (Auto) 0.0 (0.0-0.2) X10*3/uL Abs Immat Gran (auto) 0.02 (0.00-0.03) X10*3/uL Absolute Neuts (auto) 5.1 (2.0-8.3) x10*3/uL Absolute Nucleated RBC 0.000 (0.0-0.012) X10*3/uL Nucleated RBC % (auto) 0.0 (0.0-0.2) /100WBC Sodium 139 (135-145) mmol/L Potassium 4.0 (3.3-5.1) mmol/L Chloride 101 (96-108) mmol/L Carbon Dioxide 27 (22-29) mmol/L Anion Gap 15 (12-20) BUN 15 (9-16) mg/dL Creatinine 1.14 (0.5-1.4) mg/dL Estim Creat Clear Calc 87.9 Estimated GFR > 60 Random Glucose 103 (60-115) mg/dL Calcium 9.6 D (8.4-10.2) mg/dL Magnesium 2.1 (1.6-2.6) mg/dL Total Bilirubin 1.2 H (0.0-1.0) mg/dL AST 54 H (5-37) U/L ALT 59 H (0-40) U/L Alkaline Phosphatase 66 (39-117) U/L Total Protein 8.0 (6.5-8.0) g/dL Albumin 4.7 (3.5-5.0) g/dL Urine Color Urine Appearance Urine pH (5.0-8.0) Ur Specific [place] (1.005-1.025) Urine Protein (NEG-TRACE) MG/DL Urine Glucose (UA) (NEG) MG/DL Urine Ketones (NEG) MG/DL Urine Blood (NEG) Urine Nitrite (NEG) Ur Leukocyte Esterase (NEG) COVID-19 (MAYUR) Negative (Negative) COVID-19 Clin Com See Note 12/05/21 Range/Units 01:31 WBC (4.8-10.8) X10*3/uL RBC (4.60-5.80) X10*6/uL Hgb (14.0-18.0) g/dl Hct (42.0-52.0) % MCV (80.0-98.0) fL MCH (27.0-33.0) pg MCHC (31.0-36.0) g/dl RDW (11.0-16.0) % Plt Count (160-400) X10*3/uL MPV (9.4-12.4) fL Immature Gran % (Auto) (0.0-0.4) % Neut % (Auto) (45-73) % Lymph % (Auto) (20-40) % Duc[place]ne % (Auto) (2-11) % Eos % (Auto) (0-4) % Baso % (Auto) (0-2) % Lymph # (Auto) (1.2-4.9) X10*3/uL [place] # (Auto) (0.1-1.2) X10*3/uL Eos # (Auto) (0.0-0.4) X10*3/uL Baso # (Auto) (0.0-0.2) X10*3/uL Abs Immat Gran (auto) (0.00-0.03) X10*3/uL Absolute Neuts (auto) (2.0-8.3) x10*3/uL Absolute Nucleated RBC (0.0-0.012) X10*3/uL Nucleated RBC % (auto) (0.0-0.2) /100WBC Sodium (135-145) mmol/L Potassium (3.3-5.1) mmol/L Chloride (96-108) mmol/L Carbon Dioxide (22-29) mmol/L Anion Gap (12-20) BUN (9-16) mg/dL Creatinine (0.5-1.4) mg/dL Estim Creat Clear Calc Estimated GFR Random Glucose (60-115) mg/dL Calcium (8.4-10.2) mg/dL Magnesium (1.6-2.6) mg/dL Total Bilirubin (0.0-1.0) mg/dL AST (5-37) U/L ALT (0-40) U/L Alkaline Phosphatase (39-117) U/L Total Protein (6.5-8.0) g/dL Albumin (3.5-5.0) g/dL Urine Color YELLOW Urine Appearance CLEAR Urine pH 6.5 (5.0-8.0) Ur Specific [place] <= 1.005 (1.005-1.025) Urine Protein NEG (NEG-TRACE) MG/DL Urine Glucose (UA) 500 H (NEG) MG/DL Urine Ketones 5 (NEG) MG/DL Urine Blood NEG (NEG) Urine Nitrite NEG (NEG) Ur Leukocyte Esterase NEG (NEG) COVID-19 (MAYUR) (Negative) COVID-19 Clin Com Critical Care Time Critical Care Time Critical Care Time: No Discharge Plan Discharge Clinical Impression: Right flank pain Patient Disposition: Home, Self-Care Instructions: Flank Pain (ED) Additional Instructions: Take your medications as prescribed. If you were prescribed antibiotics today, it is important that you take your medication to their entirety, do not skip any doses, do not finish them early. Follow-up with your primary care provider this week. Return to the emergency department with new or worsening symptoms. Such as fevers, chills, chest pain, shortness of breath, nausea, vomiting, dizziness, headache, vision changes, lethargy In case of emergency call 911 CT/CT chest w con IMPRESSION: 1.? No evidence of a traumatic injury in the chest abdomen or pelvis. 2.? Incidental findings as described ? Urine showed no signs of infection. Prescriptions: New cyclobenzaprine 10 mg tablet 10 mg PO BEDTIME PRN (Reason: muscle spasm) Qty: 7 0RF lidocaine 5 % adhesive patch,medicated 1 patch topical DAILY PRN (Reason: pain) Qty: 15 0RF Rx Instructions: leave on most painful area for up to 12 hrs naproxen 500 mg tablet 500 mg PO BID Qty: 14 0RF No Action Januvia 100 mg tablet 100 mg PO DAILY 30 Days Qty: 30 11RF cholecalciferol (vitamin D3) 50 mcg (2,000 unit) tablet 50 mcg PO DAILY 30 Days Qty: 30 11RF atorvastatin 40 mg tablet 40 mg PO DAILY 30 Days Qty: 30 2RF Jardiance 25 mg tablet 25 mg PO DAILY 0RF metformin 500 mg tablet extended release 24 hr 1,000 mg PO BID 0RF alcohol swabs Pads, Medicated 0 pad topical 0RF lisinopril-hydrochlorothiazide 20-25 mg tablet 1 tab PO DAILY 0RF sertraline 100 mg tablet 100 mg PO DAILY 0RF clonazepam 1 mg tablet 1 mg PO TID PRN0RF estazolam 2 mg tablet 2 mg PO BEDTIME PRN0RF glycopyrrolate 1 mg tablet 1 mg PO BEDTIME PRN0RF (DME) lancets 28 gauge misc See Rx Instructions ea topical .MEDSUPPLY Qty: 100 0RF Rx Instructions: As directed test blood sugar at least 3 times a day Trulicity 0.75 mg/0.5 mL pen injector 0.75 mg subcut QWEEK 0RF amlodipine 5 mg tablet 5 mg PO DAILY 0RF diclofenac sodium 75 mg tablet,delayed release (DR/EC) 75 mg PO BID 0RF glimepiride 4 mg tablet 4 mg PO DAILY 0RF omeprazole 40 mg capsule,delayed release(DR/EC) 40 mg PO DAILY 0RF (DME) blood-glucose meter [FreeStyle Lite Meter] Kit See Rx Instructions .Route 0RF Rx Instructions: As directed test blood sugar at least 3 times a day (DME) FreeStyle Lite Strips Strip See Rx Instructions .Route 0RF Rx Instructions: As directed test blood sugar at least 3 times a day Referrals: Irma Rebolledo MD [Primary Care Provider] - 2 days Stand Alone Forms: Work/School Release
[2021-12-04 21:18] VITALS: BP 163/105; PULSE 82; RESP 18; O2SAT 97
[2021-12-04] MEDS: amLODIPine Besylate 5 MG TABLET PO (21:50)
[2021-12-04] MEDS: lisinopriL 20 MG TABLET PO (21:50)
[2021-12-04 21:52] LABS: MANUAL DIFF FLAG NO
[2021-12-04 21:54] LABS: Basophils Percent Auto 0.2 % (0-2); Eosinophils Absolute Auto 0.1 X10*3/uL (0.0-0.4); Eosinophils Percent Auto 1.7 % (0-4); Hematocrit 47.5 % (42.0-52.0); Hemoglobin 15.9 g/dl (14.0-18.0); Imm Gran Abs Auto 0.02 X10*3/uL (0.00-0.03); Imm Gran Pct Auto 0.2 % (0.0-0.4); Lymphocytes Absolute Auto 2.4 X10*3/uL (1.2-4.9); Mean Corpuscular HGB Conc 33.5 g/dl (31.0-36.0); Mean Corpuscular Hemoglobin 28.8 pg (27.0-33.0); Mean Corpuscular Volume 86.1 fL (80.0-98.0); Mean Platelet Volume 10.4 fL (9.4-12.4); Monocytes Absolute Auto 0.5 X10*3/uL (0.1-1.2); Monocytes Percent Auto 6.3 % (2-11); Neutrophils Absolute Auto 5.1 x10*3/uL (2.0-8.3); Neutrophils Percent Auto 62.6 % (45-73); Platelet Count 180 X10*3/uL (160-400); Red Blood Count 5.52 X10*6/uL (4.60-5.80); Red Cell Distribution Width 13.1 % (11.0-16.0); White Blood Count 8.2 X10*3/uL (4.8-10.8)
[2021-12-04 22:10] LABS: COVID-19 Test Negative (Negative)
[2021-12-04 22:11] LABS: Alanine Aminotransferase 59 U/L (0-40); Albumin Level 4.7 g/dL (3.5-5.0); Alkaline Phosphatase 66 U/L (39-117); Anion Gap 15 (12-20); Aspartate Amino Transferase 54 U/L (5-37); Bilirubin Total 1.2 mg/dL (0.0-1.0); Blood Urea Nitrogen 15 mg/dL (9-16); Calcium 9.6 mg/dL (8.4-10.2); Carbon Dioxide 27 mmol/L (22-29); Chloride 101 mmol/L (96-108); Creatinine Clr Calc Pharmacy 87.9; Estimated Glomerular Filt Rate > 60; Glucose Random 103 mg/dL (60-115); Magnesium 2.1 mg/dL (1.6-2.6); Sodium 139 mmol/L (135-145)
[2021-12-04] MEDS: LORazepam 1 MG TABLET PO (22:43)
[2021-12-05] MEDS: iohexoL 350 MG/ML 100 ML INFUS..BTL 85 ML IV (00:01)
[2021-12-05 00:34] VITALS: BP 129/93; PULSE 85; RESP 17; O2SAT 96
[2021-12-05] MEDS: Lidocaine 4 % Patch ADH..PATCH 1 PATCH TRANSDERMA (00:36)
[2021-12-05 00:50] VITALS: RESP 18
[2021-12-05] MEDS: Morphine Sulfate 2 MG/ML CARTRIDGE IVPUSH (00:50)
[2021-12-05 01:36] LABS: Appearance Urine CLEAR; Color Urine YELLOW; Glucose Urine UA 500 MG/DL (NEG); Leukocyte Esterase Urine NEG (NEG); Nitrite Urine NEG (NEG); PH 6.5 (5.0-8.0); Specific Gravity - Urine <= 1.005 (1.005-1.025); Urine Blood NEG (NEG); Urine Ketones 5 MG/DL (NEG); Urine Protein NEG (NEG-TRACE)
--- NOTE | 2021-12-05 01:52 | PC.NURSE ---
pt a&o, no sob or chest pain, Reviewed discharge instruction with pt. Pt verbalized understanding.
== END 2021-12-05 01:53 | disposition home or self-care (01) ==
PROVIDERS: Physician Assistant; Emergency Provider Student in an Organized Health Care Education/Training Program; PCP Internal Medicine
DX: R10.9 Unspecified abdominal pain (principal); M25.552 Pain in left hip; I10 Essential (primary) hypertension; Z20.822 Contact with and (suspected) exposure to COVID-19; Z79.899 Other long term (current) drug therapy
CPT/HCPCS: 71101; 71260; 74177; 80053; 81003; 83735; 85025; 87635; 96374; 99284; J2270; Q9967

== ENCOUNTER → 2022-02-12 11:46 | Outpatient (BNVA) | payer OTHER, SELFPAY | PROVIDERS: PCP Internal Medicine; Visit Provider Internal Medicine | DX: E11.65 Type 2 diabetes mellitus with hyperglycemia (principal); E78.5 Hyperlipidemia, unspecified; I10 Essential (primary) hypertension; Z79.4 Long term (current) use of insulin; Z79.84 Long term (current) use of oral hypoglycemic drugs | CPT/HCPCS: Q3014 ==

== ENCOUNTER 2022-03-23 09:50 | Outpatient (REF) | payer OTHER, SELFPAY ==
[2022-03-23 10:37] LABS: Estimated Average Glucose 157 mg/dL; Hemoglobin A1c % 7.1 %
[2022-03-23 11:00] LABS: Alanine Aminotransferase 45 U/L (0-40); Albumin Level 4.6 g/dL (3.5-5.0); Alkaline Phosphatase 65 U/L (39-117); Anion Gap 16 (12-20); Aspartate Amino Transferase 35 U/L (5-37); Bilirubin Total 0.7 mg/dL (0.0-1.0); Blood Urea Nitrogen 29 mg/dL (9-16); Calcium 9.5 mg/dL (8.4-10.2); Carbon Dioxide 28 mmol/L (22-29); Chloride 99 mmol/L (96-108); Estimated Glomerular Filt Rate 44; Glucose Random 111 mg/dL (60-115); Potassium 4.8 mmol/L (3.3-5.1); Sodium 138 mmol/L (135-145); Total Protein 7.7 g/dL (6.5-8.0)
== END 2022-03-23 09:51 | disposition home or self-care (01) ==
LOC: HO.LAB 09:50
PROVIDERS: PCP Internal Medicine; Visit Provider Internal Medicine
DX: E11.9 Type 2 diabetes mellitus without complications (principal); E78.00 Pure hypercholesterolemia, unspecified; I10 Essential (primary) hypertension; R74.01 Elevation of levels of liver transaminase levels
CPT/HCPCS: 36415; 80053; 83036

== ENCOUNTER 2022-06-08 10:16 | Outpatient (REF) | payer OTHER, SELFPAY ==
[2022-06-08 11:46] LABS: Estimated Average Glucose 148 mg/dL; Hemoglobin A1c % 6.8 %
[2022-06-08 12:27] LABS: Alanine Aminotransferase 70 U/L (0-40); Albumin Level 4.7 g/dL (3.5-5.0); Alkaline Phosphatase 77 U/L (39-117); Anion Gap 16 (12-20); Aspartate Amino Transferase 52 U/L (5-37); Blood Urea Nitrogen 15 mg/dL (9-16); Carbon Dioxide 28 mmol/L (22-29); Chloride 97 mmol/L (96-108); Estimated Glomerular Filt Rate > 60; Glucose Random 125 mg/dL (60-115); Potassium 4.3 mmol/L (3.3-5.1); Sodium 137 mmol/L (135-145); Total Protein 8.1 g/dL (6.5-8.0)
[2022-06-08 12:48] LABS: Vitamin B12 461 pg/mL (200-900)
== END 2022-06-08 10:17 | disposition home or self-care (01) ==
LOC: HO.LAB 10:16
PROVIDERS: PCP Internal Medicine; Visit Provider Internal Medicine
DX: E11.65 Type 2 diabetes mellitus with hyperglycemia (principal)
CPT/HCPCS: 36415; 80053; 82607; 83036

== ENCOUNTER → 2022-06-11 13:31 | Outpatient (BNVA) | payer OTHER, SELFPAY | PROVIDERS: PCP Internal Medicine; Visit Provider Internal Medicine | DX: E11.65 Type 2 diabetes mellitus with hyperglycemia (principal); E78.5 Hyperlipidemia, unspecified; I10 Essential (primary) hypertension | CPT/HCPCS: 82947; 99212 ==

== ENCOUNTER 2022-06-27 09:25 | Outpatient (REF) | payer OTHER, SELFPAY ==
[2022-06-27 09:43] LABS: MANUAL DIFF FLAG NO
[2022-06-27 10:02] LABS: Basophils Percent Auto 0.4 % (0-2); Eosinophils Absolute Auto 0.1 X10*3/uL (0.0-0.4); Eosinophils Percent Auto 1.1 % (0-4); Hematocrit 49.6 % (42.0-52.0); Hemoglobin 16.6 g/dl (14.0-18.0); Imm Gran Abs Auto 0.02 X10*3/uL (0.00-0.03); Imm Gran Pct Auto 0.2 % (0.0-0.4); Lymphocytes Absolute Auto 2.4 X10*3/uL (1.2-4.9); Lymphocytes Percent Auto 28.4 % (20-40); Mean Corpuscular HGB Conc 33.5 g/dl (31.0-36.0); Mean Corpuscular Hemoglobin 28.9 pg (27.0-33.0); Mean Corpuscular Volume 86.4 fL (80.0-98.0); Mean Platelet Volume 11.4 fL (9.4-12.4); Monocytes Absolute Auto 0.4 X10*3/uL (0.1-1.2); Monocytes Percent Auto 4.7 % (2-11); Neutrophils Absolute Auto 5.4 x10*3/uL (2.0-8.3); Neutrophils Percent Auto 65.2 % (45-73); Platelet Count 184 X10*3/uL (160-400); Red Blood Count 5.74 X10*6/uL (4.60-5.80); Red Cell Distribution Width 12.5 % (11.0-16.0); White Blood Count 8.3 X10*3/uL (4.8-10.8)
[2022-06-27 10:19] LABS: Estimated Average Glucose 148 mg/dL; Hemoglobin A1c % 6.8 %
[2022-06-27 10:38] LABS: Alanine Aminotransferase 50 U/L (0-40); Albumin Level 4.7 g/dL (3.5-5.0); Alkaline Phosphatase 79 U/L (39-117); Anion Gap 18 (12-20); Aspartate Amino Transferase 36 U/L (5-37); Bilirubin Total 0.7 mg/dL (0.0-1.0); Blood Urea Nitrogen 23 mg/dL (9-16); Carbon Dioxide 24 mmol/L (22-29); Chloride 100 mmol/L (96-108); Cholesterol 133 mg/dL; Estimated Glomerular Filt Rate 49; Glucose Random 170 mg/dL (60-115); HDL Cholesterol 32 mg/dL; LDL Cholesterol Calculated 66 mg/dl; Potassium 4.3 mmol/L (3.3-5.1); Sodium 138 mmol/L (135-145); Total Protein 8.1 g/dL (6.5-8.0); Triglycerides 177 mg/dL
[2022-06-27 10:47] LABS: Creatinine Urine 304.61 mg/dL; Microalbum/Creatinine Ratio Ur 8.5 ug/mg cr
[2022-06-27 11:01] LABS: Thyroid Stimulating Hormone 2.13 uIU/mL (0.32-4.0)
== END 2022-06-27 09:26 | disposition home or self-care (01) ==
LOC: HO.LAB 09:25
PROVIDERS: PCP Internal Medicine; Visit Provider Internal Medicine
DX: E11.9 Type 2 diabetes mellitus without complications (principal); E78.2 Mixed hyperlipidemia; I10 Essential (primary) hypertension; G47.33 Obstructive sleep apnea (adult) (pediatric)
CPT/HCPCS: 36415; 80053; 80061; 82043; 83036; 84443; 85025

== ENCOUNTER 2022-11-15 11:12 | Outpatient (REF) | payer OTHER, SELFPAY ==
[2022-11-15 12:18] LABS: Estimated Average Glucose 169 mg/dL; Hemoglobin A1c % 7.5 %
[2022-11-15 12:21] LABS: Alanine Aminotransferase 63 U/L (0-40); Albumin Level 4.3 g/dL (3.5-5.0); Alkaline Phosphatase 65 U/L (39-117); Anion Gap 12 (12-20); Aspartate Amino Transferase 43 U/L (5-37); Bilirubin Total 0.8 mg/dL (0.0-1.0); Blood Urea Nitrogen 13 mg/dL (9-16); Calcium 9.4 mg/dL (8.4-10.2); Carbon Dioxide 31 mmol/L (22-29); Chloride 103 mmol/L (96-108); Estimated Glomerular Filt Rate > 60; Glucose Random 140 mg/dL (60-115); Potassium 4.9 mmol/L (3.3-5.1); Sodium 141 mmol/L (135-145); Total Protein 7.1 g/dL (6.5-8.0)
== END 2022-11-15 11:13 | disposition home or self-care (01) ==
LOC: HO.LAB 11:12
PROVIDERS: PCP Internal Medicine; Visit Provider Internal Medicine
DX: Z00.00 Encounter for general adult medical examination without abnormal findings (principal); E11.9 Type 2 diabetes mellitus without complications; R74.01 Elevation of levels of liver transaminase levels
CPT/HCPCS: 36415; 80053; 83036

== ENCOUNTER 2023-03-21 08:35 | Outpatient (AMB) | payer OTHER, SELFPAY ==
--- OUTSIDE RECORDS SUMMARY | 2023-03-21 08:37 | XMS_ITS ---
Author Name Junior Zuleta Jr Address [address] [place] [address] Organization [facility] Address [address] [place] [address] Care Team Providers Care Solar Panel Technician Name Role Phone Junior Zuleta Jr Unavailable [phone] PROBLEMS Type Condition ICD9-CM Code [id number] Code Onset Dates Condition Status SNOMED Code Problem Bloating R14.0 Active 916625447 Problem Generalized abdominal pain R10.84 Active 200274182 Problem Rectal pain K62.89 Active 47903696 Problem Rectal bleeding K62.5 Active 25928617 ALLERGIES No Known Allergies ENCOUNTERS Encounter Location Date Diagnosis [facility] [address] [place] [id number] Sep, [facility] [address] [place] [phone] Sep, Generalized abdominal pain R10.84 and Bloating R14.0 [facility] [address] [place] [phone] 05 Sep, 2020 [facility] [facility] [address] [place], [place] [id number] Jul, Rectal bleeding K62.5 [facility] [address] [place] [phone] Jun, Rectal bleeding K62.5 and Rectal pain K62.89 IMMUNIZATIONS Vaccine Route Administration Date Status Influenza Unknown May 26, 2019 Administered SOCIAL HISTORY Qualifiers Date Never Smoker REASON FOR REFERRAL FUNCTIONAL STATUS PLAN OF CARE Activity Details VITAL SIGNS Weight 242 lbs 2020-09-26 Weight 230 lbs 2019-07-01 Height 64 in 2020-09-26 Height 64 in 2019-07-01 BMI 41.53 kg/m2 2020-09-26 BMI 39.48 kg/m2 2019-07-01 Heart Rate 72 /min 2019-07-01 Temperature 97.3 degrees Fahrenheit Blood pressure systolic 000 mm Hg Blood pressure diastolic 00 mm Hg 2020-09 MEDICATIONS Medication Instructions Dosage Frequency Start Date End Date Duration Status metFORMIN HCl 500 MG Orally twice a day 2 tablet with a meal 12h Unknown Estazolam 2 MG Orally Once a day 1 tablet at bedtime as needed 24h Unknown Sertraline HCl 100 MG Orally Once a day 1 tablet 24h 30 day(s) Unknown Ketoprofen 25 MG Orally i-ii po up to four times daily 1 capsule with food as needed Active Januvia 100 MG Orally Once a day 1 tablet 24h 30 day(s) Unknown Simvastatin 20 MG Orally Once a day 1 tablet in the evening 24h 30 day(s) Unknown Lisinopril-hydroC HLOROthiazide 20-25 MG Orally Once a day 1 tablet 24h 30 day(s) Unknown Glycopyrrolate 1 MG Unknown Jardiance 25 MG Unknown Omeprazole 40 MG Unknown Amoxicillin 500 MG Unknown Glimepiride 2 MG Orally Once a day 1 tablet with breakfast or the first main meal of the day 24h Unknown Diclofenac Sodium 75 MG Orally Twice a day 1 tablet with food or milk 12h 30 day(s) Unknown clonazePAM 1 MG Orally Once a day 1 tablet 24h Unknown Vitamin D3 50 MCG (1999) Unknown metroNIDAZOLE 500 MG Unknown PROCEDURES Procedure Date Ordered Result Body Site BP NOT ASSESS PATIENT NOT ELIGIBLE Sep 26, 2020 TOBACCO NON-USER Sep 26, 2020 DOC MEDS VERIFIED W/PT OR RE Sep 26, 2020 DIAGNOSTIC COLONOSCOPY Aug 05, 2019 RESULTS Name Result Date Reference Range GLUCOSE,WHOLE BLOOD 2019-08-05 GLUCOSE,WHOLE BLOOD 115 60-115 REASON FOR VISIT patient presents today for bloating , abd pain, COVID Screen, rectal bleeding, Patient presents today for RECTAL BLEED,PRE-COLON SCREENING Insurance Providers Health Insurance Type Health Plan Insurance Address Health Plan Insurance Phone Health Plan Insurance Name Health Plan Coverage Dates Member ID Patient Relationship to Subscriber Patient Address Patient Phone Patient Name Patient Date of Subscriber ID Subscriber Name Subscriber Date of Group No [employer] [address] [facility] [address] [employer] self JOHN DE LA CRUZ [id number]
--- NOTE | 2023-03-21 08:42 | A.OFFVIS_ITS ---
Intake Intake Visit Reasons: F/U T2DM Intake Note: * Patient presents today for DMT2 follow-up * Last Eye Exam- DUE * Last Podiatry Exam-? Does not see a Boiler Engineer * Most recent HbA1c- 7.5 11/15/22 Sales Porter Required: No Accompanied by: Self / Same As Patient Allergies No Known Allergies [No Known Allergies*] Allergy (Verified 03/21/23 09:32) Medication List - Last Reconciled 03/21/23 by Nannette Larose, DO alcohol swabs 0 pad topical amlodipine 5 mg PO DAILY atorvastatin 40 mg PO DAILY 30 days blood sugar diagnostic (FreeStyle Lite Strips) As directed test blood sugar at least 3 times a day blood-glucose meter (FreeStyle Lite Meter kit) As directed test blood sugar at least 3 times a day clonazepam 1 mg PO TID PRN cyclobenzaprine 10 mg PO BEDTIME PRN diclofenac sodium 75 mg PO BID dulaglutide (Trulicity) 1.5 mg (0.5 mL) subcut QWEEK 30 days empagliflozin 25 mg PO DAILY estazolam 2 mg PO BEDTIME PRN glimepiride 4 mg PO DAILY glycopyrrolate 1 mg PO BEDTIME PRN lancets As directed test blood sugar at least 3 times a day lidocaine 5% 1 patch topical DAILY PRN lisinopril-hydrochlorothiazide 20-25 mg 1 tab PO DAILY metformin ER 1,000 mg PO BID naproxen 500 mg PO BID omeprazole 40 mg PO DAILY sertraline 100 mg PO DAILY HPI HPI Comments History of Present Illness Details 47 YO M with PMHx T2DM, HTN, HLD and depression who is seen in F/U for T2DM. Initially diagnosed with T2DM in approximately 1999 during a routine physical exam. He has never used insulin. Current regimen is Metformin 1000 mg xr PO BID, Jardiance 25 mg PO daily and Glimpeiride 4 mg PO daily and Trulicity 1.5 once a week. Last A1C: 7.5% 11/15/2022, up from 6.8% 06/08/2022. Not checking sugars at all. Has been poorly compliant in the past. Denies any low sugars or symptoms of lows. Has hypoglycemia awareness. He has a strong family history of T2DM in his father and siblings. Has retinopathy. Last eye exam Fall 2018. Has an appointment in July 2020. Does report symptoms of neuropathy with burning and tingling in the feet. No nephropathy. UAC 8.8 11/16/2021. On lisinopril 20 mg PO daily. Does have HLD, on Atorvastatin 40 mg PO daily. LDL 74 11/16/2021. No known CAD. Diet: Eats 3 meals per day. Diet is carb heavy. Largest meal of the day is typically dinner. Weight: Stable. Has had CDE. Labs: Laboratory Tests 06/08/22 06/08/22 10:32 10:32 Creatinine 1.21 Estimated GFR > 60 Hemoglobin A1c % 6.8 AST 52 H ALT 70 H PFSH Medical History Depression HLD (hyperlipidemia) HTN (hypertension) T2DM (type 2 diabetes mellitus) Surgical History Hx of arthroscopy Hx of hernia repair Family History Father Alcoholism Diabetes mellitus HTN (hypertension) Mother No problems noted. Sister Diabetes mellitus Social History Alcohol intake: current Alcohol intake frequency: holidays/special occasions only Patient Tobacco Use Status: Never used Tobacco Assessment & Plan Assessment & Plan (1) T2DM (type 2 diabetes mellitus): Code(s): E11.9 - Type 2 diabetes mellitus without complications Qualifiers: Diabetes mellitus prison insulin use: unspecified exterminator termite insulin use status Diabetes mellitus complication status: with hyperglycemia Qualified Code(s): E11.65 - Type 2 diabetes mellitus with hyperglycemia Plan: Patient with type 2 diabetes, suboptimally controlled. Well controlled on his current regimen based on A1C. No changes at this time. I advised him to check labs now and also bring his meter for review. He should be checking sugars 3x daily. All of his questions were answered. He is in agreement with this plan of care. The importance of adherence to prescribed regimen was discussed with the patient including checking finger sticks 3-4 times per day, using medication as prescribed, monitoring for hypoglycemia and treating any episode of hypoglycemia according to the rule of 15's. The signs and symptoms of hypoglycemia were reviewed in detail, as well as the rule of 15's to treat. Proper foot care was also discussed with the patient, and the importance of yearly dilated eye exam. The patient was asked to have copy of eye exam sent to our office for review. I spent 20 minutes in reviewing the record, seeing the patient and documenting in the medical record, including 5 minutes on the phone with the Patient. (2) HLD (hyperlipidemia): Code(s): E78.5 - Hyperlipidemia, unspecified Qualifiers: Hyperlipidemia type: unspecified Qualified Code(s): E78.5 - Hyperlipidemia, unspecified Plan: Will repeat lipid panel now. (3) HTN (hypertension): Code(s): I10 - Essential (primary) hypertension Qualifiers: Hypertension type: unspecified Qualified Code(s): I10 - Essential (primary) hypertension Plan: Patient with hypertension. Will continue with lisinopril 20 mg p.o. daily. Telehealth Telehealth Location of provider rendering services: practice address Location of patient: address on file Patient Identification confirmed using: Name, : Yes Telehealth method: voice only Patient verbally consented to treatment: Yes Patient verbally consented to billing insurance company: Yes Patient informed of any privacy concerns related to visit: Yes Coding Level of Care Code Tele Est Pt Level 3 (82779) Diagnoses T2DM (type 2 diabetes mellitus) E11.65 Diabetes mellitus exterminator termite insulin use: unspecified exterminator termite insulin use status Diabetes mellitus complication status: with hyperglycemia HLD (hyperlipidemia) E78.5 Hyperlipidemia type: unspecified HTN (hypertension) I10 Hypertension type: unspecified
== END 2023-03-21 14:48 | disposition home or self-care (01) ==
LOC: HO.ENCR 08:35
PROVIDERS: PCP Internal Medicine; Visit Provider Internal Medicine
DX: E11.65 Type 2 diabetes mellitus with hyperglycemia (principal); E78.5 Hyperlipidemia, unspecified; I10 Essential (primary) hypertension
CPT/HCPCS: 99443

== ENCOUNTER → 2023-03-21 08:35 | Outpatient (BNVA) | payer OTHER, SELFPAY | PROVIDERS: PCP Internal Medicine; Visit Provider Internal Medicine ==

== ENCOUNTER 2023-04-12 13:34 | Outpatient (REF) | payer OTHER, SELFPAY ==
[2023-04-12 14:16] LABS: Estimated Average Glucose 203 mg/dL; Hemoglobin A1c % 8.7 % (<6.0)
[2023-04-12 14:42] LABS: Alanine Aminotransferase 47 U/L (0-40); Albumin Level 4.5 g/dL (3.5-5.0); Alkaline Phosphatase 90 U/L (39-117); Anion Gap 15 (12-20); Aspartate Amino Transferase 46 U/L (5-37); Bilirubin Total 0.9 mg/dL (0.0-1.0); Blood Urea Nitrogen 15 mg/dL (9-16); Calcium 10.5 mg/dL (8.4-10.2); Carbon Dioxide 28 mmol/L (22-29); Chloride 100 mmol/L (96-108); Estimated Glomerular Filt Rate > 60; Glucose Random 181 mg/dL (60-115); Potassium 4.6 mmol/L (3.3-5.1); Sodium 138 mmol/L (135-145); Total Protein 8.4 g/dL (6.5-8.0)
== END 2023-04-12 13:35 | disposition home or self-care (01) ==
LOC: HO.LAB 13:34
PROVIDERS: PCP Internal Medicine; Visit Provider Internal Medicine
DX: E11.65 Type 2 diabetes mellitus with hyperglycemia (principal); G47.33 Obstructive sleep apnea (adult) (pediatric); I10 Essential (primary) hypertension; R74.01 Elevation of levels of liver transaminase levels
CPT/HCPCS: 36415; 80053; 83036

== ENCOUNTER 2023-07-01 09:44 | Outpatient (REF) | payer OTHER, SELFPAY ==
[2023-07-01 09:57] LABS: MANUAL DIFF FLAG NO
[2023-07-01 10:23] LABS: Basophils Percent Auto 0.3 % (0-2); Eosinophils Absolute Auto 0.1 X10*3/uL (0.0-0.4); Eosinophils Percent Auto 1.2 % (0-4); Imm Gran Abs Auto 0.01 X10*3/uL (0.00-0.03); Imm Gran Pct Auto 0.1 % (0.0-0.4); Lymphocytes Absolute Auto 2.1 X10*3/uL (1.2-4.9); Lymphocytes Percent Auto 30.4 % (20-40); Mean Corpuscular HGB Conc 32.7 g/dl (31.0-36.0); Mean Corpuscular Hemoglobin 28.5 pg (27.0-33.0); Mean Corpuscular Volume 87.3 fL (80.0-98.0); Mean Platelet Volume 11.6 fL (9.4-12.4); Monocytes Absolute Auto 0.4 X10*3/uL (0.1-1.2); Monocytes Percent Auto 5.1 % (2-11); Neutrophils Absolute Auto 4.3 x10*3/uL (2.0-8.3); Neutrophils Percent Auto 62.9 % (45-73); Platelet Count 176 X10*3/uL (160-400); Red Blood Count 5.61 X10*6/uL (4.60-5.80); Red Cell Distribution Width 12.4 % (11.0-16.0); White Blood Count 6.9 X10*3/uL (4.8-10.8)
[2023-07-01 10:35] LABS: Estimated Average Glucose 203 mg/dL; Hemoglobin A1c % 8.7 % (<6.0)
[2023-07-01 11:04] LABS: Alanine Aminotransferase 40 U/L (0-40); Albumin Level 4.5 g/dL (3.5-5.0); Alkaline Phosphatase 76 U/L (39-117); Anion Gap 12 (12-20); Aspartate Amino Transferase 38 U/L (5-37); Bilirubin Total 0.8 mg/dL (0.0-1.0); Blood Urea Nitrogen 18 mg/dL (9-16); Calcium 9.4 mg/dL (8.4-10.2); Carbon Dioxide 29 mmol/L (22-29); Chloride 102 mmol/L (96-108); Cholesterol 114 mg/dL (<200); Estimated Glomerular Filt Rate > 60; Glucose Random 183 mg/dL (60-115); HDL Cholesterol 34 mg/dL (>40); LDL Cholesterol Calculated 53 mg/dL (<100); Potassium 4.1 mmol/L (3.3-5.1); Sodium 139 mmol/L (135-145); Total Protein 7.8 g/dL (6.5-8.0); Triglycerides 138 mg/dL (<150)
[2023-07-01 11:10] LABS: Thyroid Stimulating Hormone 2.06 uIU/mL (0.32-4.0)
[2023-07-01 11:11] LABS: Creatinine Urine 138.39 mg/dL; Microalbum/Creatinine Ratio Ur 10.1 ug/mg cr (<30)
== END 2023-07-01 09:45 | disposition home or self-care (01) ==
LOC: HO.LAB 09:44
PROVIDERS: PCP Internal Medicine; Visit Provider Internal Medicine
DX: E11.65 Type 2 diabetes mellitus with hyperglycemia (principal); E78.2 Mixed hyperlipidemia; G47.33 Obstructive sleep apnea (adult) (pediatric); I10 Essential (primary) hypertension
CPT/HCPCS: 36415; 80053; 80061; 82043; 82570; 83036; 84443; 85025

== ENCOUNTER 2023-07-03 12:38 | Outpatient (AMB) | payer OTHER, SELFPAY ==
--- NOTE | 2023-07-03 12:59 | MHC.OFFVIS ---
Intake Vital Signs 07/03/23 13:02 Height 5 ft 4 in Weight 232 lb 9.403 oz BMI 39.9 BP 102/68 Blood Pressure Location Lt brachial Position Sitting Pulse 62 Pulse Source Pulse Oximeter Intake Visit Reasons: F/U T2DM/Ohri/CONFIRMED Intake Note: Patient presents today to follow up on Type 2 Diabetes Mellitus. Previously seen by Dr. Perez. Last Diabetic Eye exam:06/2023 Last Podiatry Visit: None Random Glucose: 145 mg/dl HgA1C: 8.7% 07/01/23 Sign Maker Required: No Accompanied by: Self / Same As Patient Allergies No Known Allergies [No Known Allergies*] Allergy (Verified 07/03/23 13:20) HPI HPI Comments History of Present Illness Details 48 YO M with PMHx T2DM, HTN, HLD and depression who is seen in F/U for T2DM.. Patient last saw Dr. Perez on 03/21/2023 Initially diagnosed with T2DM in approximately 1999 during a routine physical exam. He has never used insulin. Current regimen is Metformin 1000 mg xr PO BID, Jardiance 25 mg PO daily and Glimpeiride 4 mg PO daily and Trulicity 1.5 once a week. Last A1C: 8.7 on 07/01/2023, up from 6.8% 06/08/2022. Not checking sugars at all. Unfortunately, patient not bring glucometer or log book to follow-up visit Has been poorly compliant in the past. Denies any low sugars or symptoms of lows. Has hypoglycemia awareness. He has a strong family history of T2DM in his father and siblings. Has retinopathy. Last eye exam 3 wks ago . Does report symptoms of neuropathy with burning and tingling in the feet. No nephropathy. UAC 8.8 11/16/2021. On lisinopril 20 mg PO daily. Does have HLD, on Atorvastatin 40 mg PO daily. LDL 74 11/16/2021. No known CAD. Weight: Stable. Has had CDE. Labs: Laboratory Tests 06/08/22 06/08/22 10:32 10:32 Creatinine 1.21 Estimated GFR > 60 Hemoglobin A1c % 6.8 AST 52 H ALT 70 H [facility] Medical History Depression HLD (hyperlipidemia) HTN (hypertension) T2DM (type 2 diabetes mellitus) Surgical History Hx of arthroscopy Hx of hernia repair Family History Father Alcoholism Diabetes mellitus HTN (hypertension) Mother No problems noted. Sister Diabetes mellitus Social History Alcohol intake: current Alcohol intake frequency: holidays/special occasions only Patient Tobacco Use Status: Never used Tobacco Physical Exam Vital Signs: Last Vital Signs Pulse 62 07/03/23 13:02 BP 102/68 07/03/23 13:02 BMI result Body Mass Index 39.9 Absence of Cushingoid features. Absence of acromegalic features. Neck exam reveals nl size thyroid about 15 gms. No thyroid nodules palpable. No carotid bruits present. Lungs CTA. Heart S1 S2, Reg R/R. No M/R/ G. Skin exam reveals absence of vitiligo or acanthosis nigricans. Abdominal exam reveals Soft NT/ND with NA BS. No organomegaly present. Neck Other: . Extrem Other: Visual exam of foot performed. No ulcerations or open lesions. Left 1st toe has some bleeding around the nailbed No onchomycosis, no callouses.Pulses 2 + distally Sensation intact to monofilament exam. Vibratory sensation sensed is intact with 128 Hz tuning fork Results Reviewed Results Reviewed: 07/03/23 13:06 Glucose, Whole Blood Routine Laboratory Last Values Glucose (Clinic) 145 mg/dL (60-115) H 07/03/23 13:06 Assessment & Plan Assessment & Plan (1) T2DM (type 2 diabetes mellitus): Code(s): E11.9 - Type 2 diabetes mellitus without complications Qualifiers: Diabetes mellitus complication status: with hyperglycemia Diabetes mellitus snf insulin use: unspecified buttermaker continuous churn insulin use status Qualified Code(s): E11.65 - Type 2 diabetes mellitus with hyperglycemia Plan: This is a 48-year-old male with a history of type 2 diabetes being treated with Jardiance, glimepiride, metformin with poor glycemic control and no known microvascula or macrovascular complication. Plan is to have the patient check his point cares pre and post meals. Cannot make any adjustments to the regimen because lack of data. Will refer patient to simulation educator and sawmill hand. Went over the relationship poor glycemic control to development of progression complications with patient. I also referred the patient to a professor of geography Orders: Referrals Diabetes Education Referral E11.9 - Type 2 diabetes mellitus without complications Nutrition/Dietitian Referral E11.9 - Type 2 diabetes mellitus without complications Podiatry Referral E11.9 - Type 2 diabetes mellitus without complications Coding Level of Care Code Est Pt Level 4 (58639) Diagnoses Type 2 diabetes mellitus with hyperglycemia, unspecified whether buttermaker continuous churn insulin use E11.65 Diabetes mellitus complication status: with hyperglycemia Diabetes mellitus buttermaker continuous churn insulin use: unspecified buttermaker continuous churn insulin use status
[2023-07-03 13:02] VITALS: BP 102/68; PULSE 62; BMI 39.9
[2023-07-03 13:10] LABS: Glucose, Whole Blood 145 mg/dL (60-115)
== END 2023-07-03 13:30 | disposition home or self-care (01) ==
PROVIDERS: PCP Internal Medicine; Visit Provider Internal Medicine Endocrinology, Diabetes & Metabolism
DX: E11.65 Type 2 diabetes mellitus with hyperglycemia (principal)
CPT/HCPCS: 99214

== ENCOUNTER → 2023-07-03 12:38 | Outpatient (BNVA) | payer OTHER, SELFPAY | PROVIDERS: PCP Internal Medicine; Visit Provider Internal Medicine Endocrinology, Diabetes & Metabolism | DX: E11.65 Type 2 diabetes mellitus with hyperglycemia (principal) | CPT/HCPCS: 82947; 99212 ==

== ENCOUNTER 2023-07-16 08:58 | Outpatient (AMB) | payer OTHER, SELFPAY ==
--- NOTE | 2023-07-16 09:42 | A.OFFVIS_ITS ---
Intake Intake Visit Reasons: DM-CONFIRMED Folder Seamer Required: No Accompanied by: Self / Same As Patient Allergies No Known Allergies [No Known Allergies*] Allergy (Verified 07/03/23 13:20) HPI Comprehensive Diabetes Asmnt Most Recent Diabetes Results: Hemoglobin A1c 6.5 % 05/09/20 Microalb/Creat Ratio 10.1 ug/mg cr (<30) 07/01/23 Cholesterol 114 mg/dL (<200) 07/01/23 HDL Cholesterol 34 mg/dL (>40) L 07/01/23 Triglycerides 138 mg/dL (<150) 07/01/23 Creatinine 1.18 mg/dL (0.5-1.4) 07/01/23 Blood Urea Nitrogen 18 mg/dL (9-16) H 07/01/23 Sodium 139 mmol/L (135-145) 07/01/23 Potassium 4.1 mmol/L (3.3-5.1) 07/01/23 Chloride 102 mmol/L (96-108) 07/01/23 Carbon Dioxide 29 mmol/L (22-29) 07/01/23 Calcium 9.4 mg/dL (8.4-10.2) 07/01/23 AST 38 U/L (5-37) H 07/01/23 ALT 40 U/L (0-40) 07/01/23 Total Protein 7.8 g/dL (6.5-8.0) 07/01/23 Albumin 4.5 g/dL (3.5-5.0) 07/01/23 PFSH Medical History Depression HLD (hyperlipidemia) HTN (hypertension) T2DM (type 2 diabetes mellitus) Surgical History Hx of arthroscopy Hx of hernia repair Family History Father Alcoholism Diabetes mellitus HTN (hypertension) Mother No problems noted. Sister Diabetes mellitus Alcohol intake: current Alcohol intake frequency: holidays/special occasions only Patient Tobacco Use Status: Never used Tobacco Assessment & Plan Assessment & Plan (1) T2DM (type 2 diabetes mellitus): Code(s): E11.9 - Type 2 diabetes mellitus without complications Qualifiers: Diabetes mellitus retirement insulin use: unspecified retirement insulin use status Diabetes mellitus complication status: with hyperglycemia Qualified Code(s): E11.65 - Type 2 diabetes mellitus with hyperglycemia Plan: Diabetes self-management education and support participation record Assessment/scale: 1= needs instructed? 2= needs review? 3= comprehend keep point? 4= demonstrates understanding/ competent? NC= Not Covered Topics Learning Objective: Initial visit Initial or post srvc Initial or post srvc Initial or post srvc Initial or post srvc Initial or post srvc Post srvc Comments Pre Edu-assessment/plan Outcome or reassess Outcome or reassess Outcome or reassess Outcome or reassess Outcome or reassess Outcome or reassess Diabetes pathophysiology 1 Healthy eating Being active 2 Taking medication 1 A Monitoring glucose 1 Acute complication Chronic complicated Lifestyle and healthy coping Diabetes distress in support B 1 ?Diabetes pathophysiology: ?Defined diabetes med identify own type of diabetes; list 3 options for treating diabetes Healthy eating: ?Described effect of type, amount and ?timing of food on blood glucose; list 3 methods for planning meal Being active: ?State effect of exercise on blood glucose level Taking medication: ?State effect of diabetes medications on diabetes; name diabetes medications taking, action and side effects Monitoring glucose: ?Identify recommended blood glucose targets and personal target Acute complication: ?List symptoms and treatment of hyper and hypoglycemia, DKA, sick day guidelines and guidelines for severe weather or situations of crisis and diabetes supply manage Chronic complication: ?To find the relationship of blood glucose levels to long- term complications of diabetes in screening and preventative measures Lifestyle and healthy coping: ?Described lifestyle and healthy coping strategies to rule out diabetes self-management Diabetes to stress and support: ?Recognize Diabetes to stress and be able to identified support options Learning objectives: The patient was provided with verbal and written education on the following topics as outlined below. Assess patient education level/literacy/barriers Patient questions/concerns, patient's last A1c 8.7% 07/01/2023 Patient reports he has had diabetes for a long time Patient is currently on Trulicity 1.5 mg weekly Metformin 1000 mg b.i.d. Jardiance 25 mg daily Glimepiride 4 mg daily Patient reports he does not always take all of his diabetes medication because he is concerned about taking them too close together when he is sleeping most of the day. Patient reports he suffers from depression and anxiety. His schedule can be a erratic. Reports eating 1-3 meals a day depending on sleep schedule. Patient is currently not testing glucose regularly did download meter since visit with Dr. Rick all glucose readings on meter have been within target. Patient is not currently exercise The patient met all learning objectives and was able to verbalize understanding and provide teach back of education topics discussed . The patient was provided with the opportunity to ask questions and all questions were answered. Topics covered in today?s session included: Medications (If applicable) * Name of medication? * Dosing/administration instructions? * Mechanism of action? * Potential side effects? * Potential adverse reaction and appropriate treatment? * Review onset, peak, duration Assess for concerns re: insurance coverage, cost, barriers to compliance Insulin/Injectables (If applicable) * Storage/care of insulin?? * Injection sites? * Site rotation? * Onset, peak, duration * Drawing up insulin? * Injecting insulin/other injectables? * Sharps disposal Continuous blood glucose monitoring (if applicable) Hypoglycemia and Hyperglycemia * Signs and symptoms? * Causes?? * Treatment? * Preventing hypoglycemia? * When to seek medical attention * Blood glucose targets and how you feel when your blood glucose is in and out of your target ranges. * Monitoring and knowing your A1C. * What can make blood glucose go up and down and preventing high and low blood glucose. * Review of blood sugar targets in expected goal range and outside of expected goal range. * Problem solving and preventing hyper/hypoglycemia. * Sick day management of diabetes. * Using blood sugar results in decision making process in managing diabetes. ?Patient was receptive to information provided and participated in the discussion. Asked?appropriate questions and demonstrated good understanding of the topics discussed.? ? Educational Materials: The patient was provided with the following written educational materials: Target Goal, how to treat hypoglycemia handouts Smart Goal:? Patient will use rule of 15 to treat any glucose levels under 70 mg/dL Patient Response to instructions: Comprehension of Instructions: Fair Readiness to make changes:? Pre contemplation How confident they feel about making changes: Fair Coding Level of Care Code Est Pt Level 1 (82404) Diagnoses Type 2 diabetes mellitus with hyperglycemia, unspecified whether termite control service representative insulin use E11.65 Diabetes mellitus retirement insulin use: unspecified retirement insulin use status Diabetes mellitus complication status: with hyperglycemia
== END 2023-07-16 09:47 | disposition home or self-care (01) ==
PROVIDERS: PCP Internal Medicine; Visit Provider Registered Nurse Diabetes Educator
DX: E11.65 Type 2 diabetes mellitus with hyperglycemia (principal)

== ENCOUNTER → 2023-07-16 08:58 | Outpatient (BNVA) | payer OTHER, SELFPAY | PROVIDERS: PCP Internal Medicine; Visit Provider Registered Nurse Diabetes Educator | DX: E11.65 Type 2 diabetes mellitus with hyperglycemia (principal) | CPT/HCPCS: 99211 ==

== ENCOUNTER 2023-10-28 11:03 | Outpatient (REF) | payer OTHER, SELFPAY ==
[2023-10-28 12:18] LABS: Estimated Average Glucose 143 mg/dL; Hemoglobin A1c % 6.6 % (<6.0)
[2023-10-28 12:49] LABS: Alanine Aminotransferase 41 U/L (0-40); Albumin Level 4.4 g/dL (3.5-5.0); Alkaline Phosphatase 67 U/L (39-117); Anion Gap 14 (12-20); Aspartate Amino Transferase 30 U/L (5-37); Bilirubin Total 0.4 mg/dL (0.0-1.0); Blood Urea Nitrogen 13 mg/dL (9-16); Calcium 9.7 mg/dL (8.4-10.2); Carbon Dioxide 29 mmol/L (22-29); Chloride 107 mmol/L (96-108); Estimated Glomerular Filt Rate > 60; Glucose Random 132 mg/dL (60-115); Potassium 4.6 mmol/L (3.3-5.1); Sodium 145 mmol/L (135-145); Total Protein 7.5 g/dL (6.5-8.0)
== END 2023-10-28 11:04 | disposition home or self-care (01) ==
LOC: HO.LAB 11:03
PROVIDERS: PCP Internal Medicine; Visit Provider Internal Medicine
DX: E11.9 Type 2 diabetes mellitus without complications (principal); I10 Essential (primary) hypertension; E78.2 Mixed hyperlipidemia; E66.9 Obesity, unspecified; G47.33 Obstructive sleep apnea (adult) (pediatric)
CPT/HCPCS: 36415; 80053; 83036

== ENCOUNTER 2024-04-22 10:54 | Outpatient (REF) | payer OTHER, SELFPAY ==
[2024-04-22 12:12] LABS: Estimated Average Glucose 220 mg/dL; Hemoglobin A1c % 9.3 % (<6.0)
[2024-04-22 12:44] LABS: Alanine Aminotransferase 38 U/L (0-40); Albumin Level 4.4 g/dL (3.5-5.0); Alkaline Phosphatase 100 U/L (39-117); Anion Gap 12 (12-20); Aspartate Amino Transferase 25 U/L (5-37); Bilirubin Total 0.6 mg/dL (0.0-1.0); Blood Urea Nitrogen 18 mg/dL (9-16); Carbon Dioxide 29 mmol/L (22-29); Chloride 102 mmol/L (96-108); Estimated Glomerular Filt Rate > 60; Glucose Random 276 mg/dL (60-115); Potassium 4.8 mmol/L (3.3-5.1); Sodium 138 mmol/L (135-145); Total Protein 7.9 g/dL (6.5-8.0)
== END 2024-04-22 10:55 | disposition home or self-care (01) ==
LOC: HO.LAB 10:54
PROVIDERS: PCP Internal Medicine; Visit Provider Internal Medicine
DX: E11.9 Type 2 diabetes mellitus without complications (principal); E66.9 Obesity, unspecified; E78.2 Mixed hyperlipidemia; G47.33 Obstructive sleep apnea (adult) (pediatric); I10 Essential (primary) hypertension
CPT/HCPCS: 36415; 80053; 83036

== ENCOUNTER 2024-04-29 08:29 | Outpatient (AMB) | payer OTHER, SELFPAY ==
--- NOTE | 2024-04-29 08:31 | A.OFFVIS_ITS ---
Vital Signs 04/29/24 08:32 Height 5 ft 4 in Weight 222 lb 10.67 oz BMI 38.2 BP 128/78 Blood Pressure Location Rt brachial Position Sitting Pulse 80 Pulse Source Pulse Oximeter Intake Visit Reasons: DM/CONFIRMED Intake Note: Patient presents today to re-establish treatment for Type 2 Diabetes Mellitus: Last Diabetic eye exam was on: DUE Last Podiatry exam was on: Does not see a Antique Finisher Most recent HbA1c: 9.3%, 04/22/2024 Random Glucose- 203mg/dL, Today Telephone Answerer Required: No Accompanied by: Self / Same As Patient Allergies No Known Allergies [No Known Allergies*] Allergy (Verified 04/29/24 08:32) HPI Comments Details: 49 year old male with type 2 diabetes presenting for follow up Medical history: HTN, HLD and depression Initially diagnosed with T2DM in approximately 1999 during a routine physical exam. Current medications: Metformin 1000 mg BID, Jardiance 25 mg PO daily and Trulicity 1.5 once a week. Off glimeperide. A1C 9.3% this week, was 6.6% 6 months ago. Says he is compliant with medications. Says he fluctuates like this based on diet. Reports dietary non compliance over the spring and summer. Says he knows what he needs to do. Notes when he has increased depressive symptoms he starts eating poorly. Unfortunate ly, patient not bring glucometer or log book to follow-up visit-he admits to not checking glucose recently Denies any low sugars or symptoms of lows. Has hypoglycemia awareness. He has a strong family history of T2DM in his father and siblings. Has retinopathy. Reports eye exam UTD Does report symptoms of neuropathy with burning and tingling in the feet. No nephropathy. UAC 8.8 11/16/2021. On lisinopril 20 mg PO daily. Does have HLD, on Atorvastatin 40 mg PO daily. LDL 74 11/16/2021. No known CAD. Weight: Says has gained some weight recently Has had CDE. ROS CONSTITUTIONAL: Denies weight loss, fever and chills. HEENT: Denies changes in vision and hearing. RESPIRATORY: Denies SOB and cough. CV: Denies palpitations and CP GI: Denies abdominal pain, nausea, vomiting and diarrhea. : Denies dysuria and urinary frequency. MSK: Denies new myalgia and joint pain. SKIN: Denies rash and pruritus. NEUROLOGICAL: Denies headache PSYCHIATRIC: Denies recent changes in mood. PHYSICAL EXAM: GENERAL: Alert and oriented x 3. NAD EYES: EOMI. Anicteric. HENT: Moist mucous membranes. No scleral icterus. No cervical lymphadenopathy. LUNGS: Clear to auscultation bilaterally. CARDIOVASCULAR: Regular rate and rhythm. No murmur. No JVD. ABDOMEN: Soft, non-tender +bs EXTREMITIES: No edema. Non-tender. SKIN: No rashes or lesions. Warm. NEUROLOGIC: No focal neurological deficits. CN II-XII grossly intact PSYCHIATRIC: Cooperative. Appropriate mood and affect [facility] Medical History Depression HLD (hyperlipidemia) HTN (hypertension) T2DM (type 2 diabetes mellitus) Surgical History Hx of arthroscopy Hx of hernia repair Family History Father Alcoholism Diabetes mellitus HTN (hypertension) Mother No problems noted. Sister Diabetes mellitus Social History Alcohol intake: current Alcohol intake frequency: holidays/special occasions only Patient Tobacco Use Status: Never used Tobacco Physical Exam Vital Signs: Last Vital Signs Pulse 80 04/29/24 08:32 BP 128/78 04/29/24 08:32 BMI result Body Mass Index 38.2 Assessment & Plan Assessment & Plan (1) T2DM (type 2 diabetes mellitus): Code(s): E11.9 - Type 2 diabetes mellitus without complications Category: Medical Qualifiers: Diabetes mellitus mcfp insulin use: unspecified termite control service representative insulin use status Diabetes mellitus complication status: with hyperglycemia Qualified Code(s): E11.65 - Type 2 diabetes mellitus with hyperglycemia Plan Uncontrolled Discussed micro/macrovascular complications of uncontrolled diabetes He reports he will get back to his former diet. He was hesitant to increase or add medications. Ultimately he agreed to increase trulicity to 3mg weekly. Continue metformin, rajivance. Advise to return in one month with fasting readings & bring meter. Medications: New dulaglutide (Trulicity) 3 mg (0.5 mL) subcut QWEEK 12 weeks 2 mL 3RF Discontinued dulaglutide (Trulicity) Discontinued Reason: Doctor's Order 1.5 mg (0.5 mL) subcut QWEEK 30 days 2.5 mL 3RF Coding Level of Care Code Est Pt Level 4 (00457) Diagnoses Type 2 diabetes mellitus with hyperglycemia, unspecified whether termite control service representative insulin use E11.65 Diabetes mellitus termite control service representative insulin use: unspecified mcfp insulin use status Diabetes mellitus complication status: with hyperglycemia
[2024-04-29 08:32] VITALS: BP 128/78; PULSE 80; BMI 38.2
[2024-04-29 08:43] LABS: Glucose, Whole Blood 203 mg/dL (60-115)
== END 2024-04-29 08:52 | disposition home or self-care (01) ==
PROVIDERS: PCP Internal Medicine; Visit Provider Internal Medicine
DX: E11.65 Type 2 diabetes mellitus with hyperglycemia (principal)
CPT/HCPCS: 99214

== ENCOUNTER → 2024-04-29 08:29 | Outpatient (BNVA) | payer OTHER, SELFPAY | PROVIDERS: PCP Internal Medicine; Visit Provider Internal Medicine | DX: E11.65 Type 2 diabetes mellitus with hyperglycemia (principal); E78.5 Hyperlipidemia, unspecified; I10 Essential (primary) hypertension | CPT/HCPCS: 82947; 99212 ==

== ENCOUNTER 2024-07-27 09:58 | Outpatient (REF) | payer OTHER, SELFPAY ==
[2024-07-27 11:22] LABS: Estimated Average Glucose 252 mg/dL; Hemoglobin A1C 364.2663 umol/L; Hemoglobin A1c % 10.4 % (<6.0); Total Hemoglobin (HGBA1C) 4028.2502 umol/L
[2024-07-27 12:15] LABS: Alanine Aminotransferase 39 U/L (0-40); Albumin Level 4.4 g/dL (3.5-5.0); Alkaline Phosphatase 74 U/L (39-117); Anion Gap 10 (12-20); Aspartate Amino Transferase 29 U/L (5-37); Bilirubin Total 0.7 mg/dL (0.0-1.0); Blood Urea Nitrogen 11 mg/dL (9-16); Calcium 9.1 mg/dL (8.4-10.2); Carbon Dioxide 31 mmol/L (22-29); Chloride 100 mmol/L (96-108); Cholesterol 146 mg/dL (<200); Estimated Glomerular Filt Rate > 60; Glucose Random 318 mg/dL (60-115); HDL Cholesterol 36 mg/dL (>40); LDL Cholesterol Calculated 82 mg/dL (<100); Potassium 4.7 mmol/L (3.3-5.1); Sodium 136 mmol/L (135-145); Total Protein 7.9 g/dL (6.5-8.0); Triglycerides 142 mg/dL (<150)
[2024-07-27 14:33] LABS: Creatinine Urine 205.22 mg/dL
== END 2024-07-27 09:59 | disposition home or self-care (01) ==
LOC: HO.LAB 09:58
PROVIDERS: PCP Internal Medicine; Visit Provider Internal Medicine
DX: E11.65 Type 2 diabetes mellitus with hyperglycemia (principal); G47.33 Obstructive sleep apnea (adult) (pediatric); I10 Essential (primary) hypertension; Z68.41 Body mass index [BMI] 40.0-44.9, adult
CPT/HCPCS: 36415; 80053; 80061; 82043; 82570; 83036

== ENCOUNTER 2024-08-11 08:58 | Outpatient (REF) | payer OTHER, SELFPAY | END 2024-08-11 08:59 | disposition home or self-care (01) | LOC: HO.SH 08:58 | PROVIDERS: Visit Provider Internal Medicine | DX: Z46.1 Encounter for fitting and adjustment of hearing aid (principal); H90.3 Sensorineural hearing loss, bilateral | CPT/HCPCS: 92557 ==

== ENCOUNTER 2025-03-24 11:18 | Outpatient (REF) | payer OTHER, SELFPAY ==
[2025-03-24 11:50] LABS: Hemoglobin A1C 456.4429 umol/L; Total Hemoglobin (HGBA1C) 4330.6924 umol/L
--- OUTSIDE RECORDS SUMMARY | 2025-03-24 12:05 | XMS_ITS | Clinical Summary ---
Author Organization [facility] Address [address] [place] [address] Care Team Providers Care Can Closing Machine Operator Name Role Phone Iva Renteria PECAN MALLOW DIPPER Primary Care Provider [phone] Source Comments PLEASE NOTE, if this patient is a minor, it may be UNLAWFUL to discuss sensitive information that is contained in these records (such as FAMILY PLANNING, MENTAL HEALTH or SUBSTANCE ABUSE) with the minor patient's parent or other person without the patient's specific authorization.[facility] Allergies No known active allergies Medications ibuprofen (ADVIL,MOTRIN) 600 mg tabletIndicati ons:Chronic pain of left knee,Bilateral carpal tunnel syndrome Take 1 Tab by mouth 3 (three) times daily as needed for moderate pain. 30 Tab 1 6 Active Miscellaneous Medical Supply miscIndication s:Bilateral carpal tunnel syndrome by miscellaneous route nightly at bedtime. Bilateral wrist splints. Use every night to keep wrists/hands in neutral position. 2 Each 0 6 Active blood-glucose meter kit monitoring kitIndications :Type 2 diabetes mellitus with complication, without long-term current use of insulin ([facility]) as needed for blood glucose monitoring. Check Blood glucose once daily 1 Each 0 6 Active blood sugar diagnostic stripsIndicati ons:Type 2 diabetes mellitus with complication, without long-term current use of insulin ([facility]) 1 Strip as needed for high blood sugar. Check Blood glucose once daily 100 Each 3 6 Active alcohol swabsIndicatio ns:Type 2 diabetes mellitus with complication, without long-term current use of insulin ([facility]) Check Blood glucose once daily 100 Each 3 6 Active FREESTYLE LANCETS 28 gauge U ONCE D 3 6 Active lisinopril (PRINIVIL,ZEST RIL) 2.5 mg tabletIndicati ons:Type 2 diabetes mellitus with microalbuminur ia, without long-term current use of insulin ([facility]) Take 1 Tab by mouth once daily 30 Tab 2 7 Active gabapentin (NEURONTIN) 100 mg capsuleIndicat ions:Neuropath y Take 1 Cap by mouth 3 (three) times daily 90 Cap 2 7 Active sitagliptan (JANUVIA) 100 mg tabletIndicati ons:Type 2 diabetes mellitus with microalbuminur ia, without long-term current use of insulin ([facility]) Take 1 Tab by mouth once daily 30 Tab 3 7 Active glimepiride (AMARYL) 2 mg tabletIndicati ons:Type 2 diabetes mellitus with microalbuminur ia, without long-term current use of insulin ([facility]) Take 1 Tab by mouth once daily with breakfast 30 Tab 3 7 Active aspirin (ASPIRIN LOW DOSE) [address] tabletIndicati ons:Type 2 diabetes mellitus with microalbuminur ia, without long-term current use of insulin ([facility]) Take 1 Tab by mouth once daily 30 Tab 6 7 Active clotrimazole (LOTRIMIN) 1 % creamIndicatio ns:Tinea pedis of left foot Apply topically 2 (two) times daily To affected areas between toes 28 g 7 Active Active Problems Problem Noted Date Diagnosed Date Abnormal LFTs 11/28/2016 Type 2 diabetes mellitus wit h microalbuminuria, without long-term current use of insulin ([facility]) 06/26/2016 Overview (12/03/2016): severe diarrhea with Metformin Obesity (BMI 30-39.9) 06/19/2016 Essential hypertension 06/19/2016 Chronic pain of left knee 06/19/2016 Overview (03/05/2017): S/p Arthroscopic ACL reconstruction allograft and partial medial meniscectomy in [place] In 04/2015 per pt. Following [facility] orthopedics. Last visit 08/09/16, pain is likely due to lack of optimal postoperative quad strengthening program. Recommend PT. He is allowed to work as tolerated w/o restrictions. F/u prn. [facility] 08/21/16- Treatment 2x/week for 4-6 weeks Bilateral carpal tunnel syndrome 06/19/2016 Pain of both heels 06/19/2016 Depression with anxiety 06/19/2016 Overview (06/19/2016): Used to follow at [address] [facility] Immunizations Immunization Administration Dates Next Due PNEUMOCOCCAL POLYSACCHARIDE PPV23 (Pneumovax 23) 03/07/2017 Social History Tobacco Use Types Packs/Day Years Used Date Smoking Tobacco: Never Tobacco Cessation:Counseling Given: Yes Alcohol Use Standard Drinks/Week Comments Yes 0 (1 standard drink = 0.6 oz pur e alcohol) Sometimes Social Connections Answer Date Recorded Social Connections and Isolation 0 04/12/2019 Financial Resource Strain Answer Date R ecorded Financial Resource Strain 0 2018 Stress Answer Date Recorded Stress 0 04/12/2019 Physical Activity Answer Date Recorded Physical Activity 0 04/12/2019 Food Insecurity Answer Date Recorded Food 0 04/12/2019 Transportation Needs Answer Date Record ed Transportation 0 04/12/2019 Housing Stability Answer Date Recorded Housing 0 04/12/2019 Safety and Environment Answer Date Memo rded Safety 0 04/12/2019 Utilities Answer Date Recorded Utilities 0 04/12/2019 Employment Answer Date Recorded Employment 0 04/12/2019 Sex and Gender Information Value Date Recorded Sex Assigned at Not on file Legal Sex Male 12:20 PM PDT Gender Identity Not on file Sexual Orientation Not on file Last Filed Vital Signs Vital Sign Reading Time Taken Comments Blood Pressure 122/78 03/07/2017 2:17 PM EDT Pulse 68 03/07/2017 2:17 PM EDT Temperature 37.1 C (98.7 F) 03/07/2017 2:17 PM EDT Respiratory Rate 18 03/07/2017 2:17 PM EDT Oxygen Saturation - - Inhaled Oxygen Concentration - - Weight 109.8 kg (242 lb) 03/07/2017 2:17 PM EDT Height 162.6 cm (5' 4 ) 03/07/2017 2:17 PM EDT Body Mass Index 41.54 03/07/2017 2:17 PM EDT Plan of Treatment Not on file Insurance [employer] Member Subscriber Plan / Payer (Ef fective 2016-Present) Name:Jorden Munroe Relation to Subscriber:Self Name:Jorden Munroe Payer ID:[id number] Group ID:Not on file Type:Medicaid Address: [facility] [address] [place] [address] Care Teams Can Closing Machine Operator Relationship Specialty Start Date End Date Iva Renteria FNP [address] [place] [address] PCP - General 10/14/18
--- OUTSIDE RECORDS SUMMARY | 2025-03-24 12:05 | XMS_ITS | Clinical Summary ---
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[employer] Name Role Phone Physician, No Pcp Primary Care Provider Unavaila ble Encounters Date Type Department Care Team Description 02/19/2025 11:36 PM EDT - 02/20/2025 1:19 AM EDT Emergency [facility] Emergency [address] [place] [address] Discharge Disposition: Left Against Medical Advice from Last 3 Months Social History Tobacco Use Types Packs/Day Years Used Date Smoking Tobacco: Never Assessed Sex and Gender Information Value Date Recorded Sex Assigned at Not on file Legal Sex Male 3:33 PM EST Gender Identity Not on file Sexual Orientation Not on file Last Filed Vital Signs Vital Sign Reading Time Taken Comments Blood Pressure 149/96 02/19/2025 11:50 PM EDT Pulse 89 02/19/2025 11:50 PM EDT Temperature 36.8 C (98.2 F) 02/19/2025 11:50 PM EDT Respiratory Rate 20 02/19/2025 11:50 PM EDT Oxygen Saturation 97% 02/19/2025 11:50 PM EDT Inhaled Oxygen Concentration - - Weight 95.3 kg (210 lb) 02/19/2025 11:50 PM EDT Height 167.6 cm (5' 6 ) 02/19/2025 11:50 PM EDT Body Mass Index 33.89 02/19/2025 11:50 PM EDT Plan of Treatment Health Maintenance Due Date Last Done Comments Diabetes: Annual Foot Exam 01/31/1986 Diabetes: Annual Retina Eye Exam 01/31/1986 Hepatitis B Vaccines (1 of - 19+ 3-dose series) 01/31/1995 COVID-19 Vaccine (2023-2 5 season) 2024 12/28/2020, 11/30/2020 Cholesterol Screening (Lipid Panel) 05/28/2024 Colorectal Cancer Screening: Colonoscopy 05/28/2024 HIV Screening 05/28/2024 Hepatitis C Screening 05/28/2024 Medicare Annual Wellness Visit 05/28/2024 Social Influencers of Health Screening 05/28/2024 Depression Screening 08/19/2024 Diabetes: Annual Urine Albumin-Creatinine Ratio (uACR) 02/20/2025 Diabetes: Blood Sugar Contro l Test (HGBA1C) 02/20/2025 Influenza Vaccine (#1) 2025 Diabetes: Annual GFR (Glomerular Filtration Rate) 02/20/2026 02/20/2025 Hypertension/CHF/CAD Annual BMP Blood Test 02/20/2026 02/20/2025 DTaP,Tdap,and Td Vaccines (2 - Td or Tdap) 07/28/2027 07/28/2017 Pneumococcal Vaccine: Pediatrics (0 to 5 Years) and At-Risk Patients (6 to 49 Years) Aged Out 03/07/2017 No longer eligible b ased on patient's age to complete this topic HIB Vaccines Aged Out No longer eligi ble based on patient's age to complete this topic HPV Vaccines Aged Out No longer eligi ble based on patient's age to complete this topic Hepatitis A Vaccines Aged Out No long er eligible based on patient's age to complete this topic IPV Vaccines Aged Out No longer eligi ble based on patient's age to complete this topic MMR Vaccines Aged Out No longer eligi ble based on patient's age to complete this topic Meningococcal ACWY Vaccine Aged Out N o longer eligible based on patient's age to complete this topic Meningococcal B Vaccine Aged Out No l onger eligible based on patient's age to complete this topic RSV Immunization Patients Under 20 months Aged Out No longer eligible b ased on patient's age to complete this topic Varicella Vaccines Aged Out No longer eligible based on patient's age to complete this topic Procedures Procedure Name Priority Date/Time Associated Diagnosis Comments CBC WITH AUTO DIFFERENTIAL STAT 02/20/2025 12:00 AM EDT COMPREHENSIVE METABOLIC PANEL STAT 02/20/2025 12:00 AM EDT CBC AND DIFFERENTIAL STAT 02/20/2025 12:00 AM EDT from Last 3 Months Results * (ABNORMAL) CBC auto differential (02/20/2025 12:00 AM EDT) [facility] Signature WBC 10.1 4.8 - 10.8 K/mcL LAB [facility]OLOG[facility] RBC 5.50 4.50 - 5.50 M/mcL LAB HEMETOLOGY METHOD 02/[facility] Hemoglobin 15.3 13.5 - 17.5 g/dL LAB HEMETOLOGY METHOD 02/20/2025 1:20 AM [facility] Hematocrit 46.4 42.0 - 54.0 % LAB HEMETOLOGY METHOD 02/20/2025 1:20 AM [facility] MCV 84.7 79.0 - 98.0 FL LAB HEMETOLOGY METHOD 02/20/2025 1:20 AM [facility] MCH 27.9 27.0 - 32.0 pcg LAB HEMETOLOGY METHOD 02/20/2025 1:20 AM [facility] MCHC 33.0 32.0 - 37.0 g/dL LAB HEMETOLOGY METHOD 02/20/2025 1:20 AM [facility] RDW 12.9 11.0 - 15.0 % LAB HEMETOLOGY METHOD 02/20/2025 1:20 AM [facility] Platelets 204 130 - 400 K/mcL LAB HEMETOLOGY METHOD 02/20/2025 1:20 AM [facility] MPV 11.5(H) 7.0 - 11.0 FL LAB HEMETOLOGY METHOD 02/20/2025 1:20 AM [facility] NRBC 0.0 <1.0 % LAB HEMETOLOGY METHOD 02/20[facility]2025 [facility] NRBC Absolute 0.00 <0.10 K/mcL LAB HEMETOLOGY METHOD 02/20/2025 1:20 AM [facility] Neutrophils Relative 54.3 % LAB HEMETOLOGY METHOD 02/20/2025 1:20 AM [facility] Lymphocytes Relative 38.8 % LAB HEMETOLOGY METHOD 02/20/2025 1:20 AM [facility] Monocytes Relative 5.5 % LAB HEMETOLOGY METHOD 02/20/2025 1:20 AM [facility] Eosinophils Relative 0.8 % LAB HEMETOLOGY METHOD 02/20/2025 1:20 AM [facility] Basophils Relative 0.3 % LAB HEMETOLOGY METHOD 02/20/2025 1:20 AM [facility] Immature Granulocytes Relative 0.3 % LAB HEMETOLOGY METHOD 02/20/2025 1:20 AM [facility] Neutrophils Absolute 5.48 1.50 - 7.00 K/mcL LAB HEMETOLOGY METHOD 02/20/2025 1:20 AM [facility] Lymphocytes Absolute 3.92 1.00 - 5.00 K/mcL LAB HEMETOLOGY METHOD 02/20/2025 1:20 AM [facility] Monocytes Absolute 0.56 0.20 - 1.00 K/mcL LAB HEMETOLOGY METHOD 02/20/2025 1:20 AM [facility] Eosinophils Absolute 0.08 0.00 - 0.50 K/mcL LAB HEMETOLOGY METHOD 02/20/2025 1:20 AM [facility] Basophils Absolute 0.03 0.00 - 0.20 K/mcL LAB HEMETOLOGY METHOD 02/20/2025 1:20 AM [facility] Immature Granulocytes Absolute 0.03 0.00 - 0.03 K/mcL LAB HEMETOLOGY METHOD 02/20/2025 1:20 AM [facility] Blood Venous blood specimen / Unknown Venipuncture / Unknown 02/20/2025 12:00 AM EDT 02/20/2025 1:15 AM EDT us Renea Curry DO LAB BLOOD ORDERABLES Rossy l Result [facility] [address] [place] [address], * (ABNORMAL) Comprehensive metabolic panel (02/20/2025 12:00 AM EDT) Sodium 137 133 - 145 mmol/L LAB CHEMISTRY METHOD 02/20/2025 1:46 AM [facility] Potassium 3.9 3.5 - 5.5 mmol/L LAB CHEMISTRY METHOD 02/20/2025 1:46 AM [facility] Chloride 101 96 - 110 mmol/L LAB CHEMISTRY METHOD 02/20/2025 1:46 AM [facility] CO2 27 21 - 32 mmol/L LAB CHEMISTRY METHOD 02/20/2025 1:46 AM [facility] Anion Gap 9 3 - 11 LAB CHEMISTRY METHOD 02/20/2025 1:46 AM [facility] Glucose 186(H) 70 - 100 mg/dL LAB CHEMISTRY METHOD 02/20/2025 1:46 AM [facility] BUN 16 5 - 25 mg/dL LAB CHEMISTRY METHOD 02/20/2025 1:46 AM [facility] Creatinine 1.15 0.70 - 1.30 mg/dL LAB CHEMISTRY METHOD 02/20/2025 1:46 AM [facility] eGFR 78 >=60 mL/min/1. 73m2 LAB CHEMISTRY METHOD 02/20/2025 1:46 AM [facility] Comment:Calculation based on the Chronic Kidney Disease Epidemiology Collaboration (CKD-EPI) equation refit without adjustment for race. BUN/Creatinine Ratio 13.9 LAB CHEMISTRY METHOD 02/20/2025 1:46 AM [facility] Calcium 9.2 8.5 - 10.5 mg/dL LAB CHEMISTRY METHOD 02/20/2025 1:46 AM [facility] AST (SGOT) 56(H) 10 - 42 unit/L LAB CHEMISTRY METHOD 02/20/2025 1:46 AM [facility] ALT (SGPT) 57 10 - 60 unit/L LAB CHEMISTRY METHOD 02/20/2025 1:46 AM [facility] Alkaline Phosphatase 93 42 - 121 unit/L LAB CHEMISTRY METHOD 02/20/2025 1:46 AM [facility] Total Protein 7.9 6.0 - 8.0 g/dL LAB CHEMISTRY METHOD 02/20/2025 1:46 AM [facility] Albumin 4.4 3.2 - 5.0 g/dL LAB CHEMISTRY METHOD 02/20/2025 1:46 AM [facility] Total Bilirubin 0.9 0.0 - 1.4 mg/dL LAB CHEMISTRY METHOD 02/20/2025 1:46 AM [facility] Blood Venous blood specimen / Unknown Venipuncture / Unknown 02/20/2025 12:00 AM EDT 02/20/2025 1:15 AM EDT us Renea Curry DO LAB BLOOD ORDERABLES Rossy l Result [facility] [address] [place] [address], from Last 3 Months Insurance [employer] MEDICARE Member Subscriber Plan / Payer (Ef fective 2025-Present) Name:GAUTHIERLEILAAR Relation to Subscriber:Self Name:Jak Jorden Payer ID:[id number] Group ID:Not on file Type:Not on file Address: [facility] [address] [address] Care Teams Patrol Sergeant [employer] Relationship Specialty Start Date End Date Physician, No Pcp PCP - General 02/20/25
[2025-03-24 12:20] LABS: Alanine Aminotransferase 49 U/L (0-40); Albumin Level 4.9 g/dL (3.5-5.0); Alkaline Phosphatase 103 U/L (39-117); Anion Gap 11 (12-20); Aspartate Amino Transferase 34 U/L (5-37); Blood Urea Nitrogen 14 mg/dL (9-16); Calcium 9.8 mg/dL (8.4-10.2); Carbon Dioxide 32 mmol/L (22-29); Chloride 101 mmol/L (96-108); Estimated Glomerular Filt Rate > 60; Potassium 4.8 mmol/L (3.3-5.1); Sodium 139 mmol/L (135-145); Total Protein 8.3 g/dL (6.5-8.0)
== END 2025-03-24 11:19 | disposition home or self-care (01) ==
LOC: HO.LAB 11:18
PROVIDERS: Visit Provider Internal Medicine
DX: E11.65 Type 2 diabetes mellitus with hyperglycemia (principal); I10 Essential (primary) hypertension; R80.8 Other proteinuria; Z91.148 Patient's other noncompliance with medication regimen for other reason
CPT/HCPCS: 36415; 80053; 83036

== ENCOUNTER 2025-06-29 13:21 | Emergency (ER) | payer OTHER, SELFPAY ==
--- NOTE | ~2025-06-29 | XR_ITS ---
EXAMINATION: XR FOOT, LEFT CLINICAL INFORMATION: puncture wound plantar surface COMPARISON: None available. TECHNIQUE: AP, lateral, and oblique views of the left foot. FINDINGS: No metallic or radiopaque foreign body. No subcutaneous emphysema. No acute cortical disruption or gross malalignment. Plantar calcaneus spur. Small exostosis at the Achilles tendon insertion. XR/XR foot LT min 3V IMPRESSION: No acute fracture or dislocation. No metallic or radiopaque foreign body. Plantar calcaneal spur, small. Electronically signed by: Andre Whitlock MD 06/29/2025 01:59 PM EST RP
[2025-06-29 13:31] VITALS: BP 126/79; PULSE 112; RESP 20; TEMP 36.3; O2SAT 94; BMI 37.8
--- NOTE | 2025-06-29 13:32 | ED.GENADULT ---
HPI - General Adult General Chief complaint: Extremity Injury, Lower Stated complaint: General Medical Time Seen by Provider: 06/29/25 13:36 Source: patient, RN notes reviewed and old records reviewed Mode of arrival: ambulatory Limitations: no limitations History of Present Illness ED Provider: [place] HPI narrative: Patient is a 50-year-old male presenting with complaint of two puncture wounds to left foot. States he accidentally stepped on sanford nails twice prior to arrival, was wearing shoes at the time. Unsure last Tdap. MD complaint: foot injury Related Data Home Medications ?Medication ?Instructions ?Recorded ?Confirmed alcohol swabs 0 pad topical 06/15/20 03/21/23 clonazepam 1 mg tablet 1 mg PO TID PRN 06/15/20 03/21/23 empagliflozin 25 mg tablet 25 mg PO DAILY 06/15/20 03/21/23 estazolam 2 mg tablet 2 mg PO BEDTIME PRN 06/15/20 03/21/23 glycopyrrolate 1 mg tablet 1 mg PO BEDTIME PRN 06/15/20 03/21/23 lisinopril 20 1 tab PO DAILY 06/15/20 03/21/23 mg-hydrochlorothiazide 25 mg tablet metformin 500 mg tablet,extended 1,000 mg PO BID 06/15/20 03/21/23 release 24 hr sertraline 100 mg tablet 100 mg PO DAILY 06/15/20 03/21/23 amlodipine 5 mg tablet 5 mg PO DAILY 08/21/21 03/21/23 blood sugar diagnostic (FreeStyle 08/21/21 03/21/23 Lite Strips) blood-glucose meter (FreeStyle 08/21/21 03/21/23 Lite Meter kit) diclofenac sodium 75 mg 75 mg PO BID 08/21/21 03/21/23 tablet,delayed release lancets 28 gauge #100 ea 08/21/21 03/21/23 omeprazole 40 mg capsule,delayed 40 mg PO DAILY 08/21/21 03/21/23 release Previous Rx's ?Medication ?Instructions ?Recorded atorvastatin 40 mg tablet 40 mg PO DAILY 30 days #30 tabs 08/02/21 cyclobenzaprine 10 mg tablet 10 mg PO BEDTIME PRN muscle spasm 12/05/21 #7 tabs lidocaine 5 % topical patch 1 patch topical DAILY PRN pain #15 12/05/21 ea naproxen 500 mg tablet 500 mg PO BID #14 tabs 12/05/21 dulaglutide 3 mg/0.5 mL 3 mg (0.5 mL) subcut QWEEK 12 04/29/24 subcutaneous pen injector weeks #2 mL (Trulicity) acetaminophen 650 mg 650 mg PO Q8H PRN pain #30 tabs 07/08/25 tablet,extended release (Tylenol 8 Hour) amoxicillin 875 mg-potassium 1 tab PO BID #14 tabs 07/08/25 clavulanate 125 mg tablet Allergies Allergy/AdvReac Type Severity Reaction Status Date / Time No Known Allergies (No Known Allergy Verified 06/29/25 13:36 Allergies*) Review of Systems Review of Systems: as per hpi Yes all other systems are reviewed and are negative Constitutional: Constitutional: Reports as per HPI [facility] Past Medical History Medical History (Updated 07/10/25 @ 15:14 by Vanessa Mahoney DPM) Left foot pain Foreign body in left foot Puncture wound of left foot Depression HLD (hyperlipidemia) HTN (hypertension) T2DM (type 2 diabetes mellitus) Surgical History Hx of arthroscopy Hx of hernia repair Family History Family History Father Alcoholism Diabetes mellitus HTN (hypertension) Mother No problems noted. Sister Diabetes mellitus Social History Social History Alcohol intake: current Alcohol intake frequency: holidays/special occasions only Patient Tobacco Use Status: Never used Tobacco Physical Exam ED Vital Signs: Vital Signs - 24 hr 06/29/25 13:31 Temperature 97.3 F Pulse Rate 112 H Respiratory Rate 20 Blood Pressure 126/79 Pulse Oximetry 94 Oxygen Delivery Method Room Air BMI result Body Mass Index 37.8 Vital signs have been reviewed and appear to be correct. Blood pressure normal. Heart rate mildly tachycardic. Respiratory rate normal. Temperature normal. Oxygen saturation normal. Const General: cooperative, healthy appearing and no acute distress Orientation/consciousness: oriented to person, oriented to place, oriented to time and patient oriented x3 Limitations: no limitations HENMT Head: Yes normocephalic and Yes atraumatic Ears: external ears normal General nose exam: Normal external nose present Face and sinus: Yes face symmetric Mouth: oropharynx normal and moist mucous membranes Throat: Yes uvula midline Eyes Pupils: Equal, round and reactive pupils present Neck Neck: Yes normal visual inspection and Yes supple Resp Effort & Inspection: normal respiratory effort and able to speak in complete sentences Auscultation: clear to auscultation bilaterally Cardio Rate: regular rate Rhythm: regular rhythm Heart sounds: S1 normal heart sound present and S2 normal heart sound present Skin General skin exam: elasticity normal and turgor normal Neuro General: oriented to person, oriented to place, oriented to time, patient oriented x3, moves all extremities, no focal motor deficits and CN's II-XI intact bilaterally Cranial nerves: Yes Equal, round and reactive pupils present Cognition (Neuro): normal cognition Extrem General: Yes full ROM, Yes no pedal edema and Yes no calf tenderness Ankle/foot/toe images:  1. 2mm puncture wound without drainage, surrounding erythema, or warmth Psych Mental Status: mental status grossly normal Affect: normal affect Thought process: Normal thought process present Medications Administered Discontinued Medications Generic Name Dose Route Start Last Admin Trade Name Freq PRN Reason Stop Dose Admin Diphtheria/Tetanus/Acell Pertussis 0.5 ml 06/29/25 13:41 06/29/25 13:59 Diphth,Pertus(Acell),Tet Adult 0.5 Ml Syringe IM 06/29/25 13:42 0.5 ml .ONCE ONE Administration Medical Decision Making Medical Decision Making [facility] Narrative: Patient is a 50-year-old male presenting with complaint of two puncture wounds to left foot. On exam patient is awake, A+Ox3, VS WNL, afebrile, normal neurological exam without focal deficits, physical exam findings as above. Given reported symptoms and physical exam findings, initial differential includes but is not limited to puncture wound, foreign body, at risk for tetanus. Tdap updated. Foot cleansed thoroughly with saline and Betadine. X-ray notable for no visualized foreign body. My interpretation is in agreement with the radiologist's interpretation. Will treat with course of Augmentin. Advised follow up with PCP as needed. Return precautions discussed. Patient verbalized understanding of and agreement with plan. Differential Diagnosis Differential Diagnoses: The differential diagnosis associated with the presentation includes as per [facility] Admission/Observation Consideration of admission/observation: Escalation of care including admission/observation considered Patient would have been admitted to the hospital and transferred to appropriate facility had their clinical presentation warranted hospital admission. Independent Interpretation I performed an independent interpretation of an: Plain X-Ray Interpretation: Left foot x-ray notable for no visualized foreign body. Radiology Impression Discussion of test interpretation with radiology: I have reviewed the radiologist's reading. Radiologist Impression: XR/XR foot LT min 3V IMPRESSION: No acute fracture or dislocation. No metallic or radiopaque foreign body. Plantar calcaneal spur, small. External Record Review External record reviewed: Inpatient record, Office record and Outpatient record Prescription Management I considered prescription management with: Antibiotic Discharge Plan Discharge Clinical Impression: Puncture wound of foot Patient Disposition: Home, Self-Care Instructions: Amoxicillin/Clavulanate Potassium (By mouth), Puncture Wound (DC), Puncture Wound in the Foot (ED) Additional Instructions: You were evaluated in the emergency department today for puncture wounds to your foot. Your wounds were thoroughly cleansed in the emergency department with saline and Betadine. Your Tdap (tetanus vaccine) was updated at today's visit. You are being treated with a course of antibiotics to prevent infection. Complete the full course as prescribed. You should check the area at least once daily to assess for signs of infection. Return to the emergency department if you notice new redness, swelling, thick yellow drainage, redness streaking up your leg, fever or any other new or concerning symptoms. Follow up with your primary care provider as needed. Prescriptions: No Action atorvastatin 40 mg tablet 40 mg PO DAILY 30 Days Qty: 30 2RF cyclobenzaprine 10 mg tablet 10 mg PO BEDTIME PRN (Reason: muscle spasm) Qty: 7 0RF lidocaine 5 % adhesive patch,medicated 1 patch topical DAILY PRN (Reason: pain) Qty: 15 0RF Rx Instructions: leave on most painful area for up to 12 hrs naproxen 500 mg tablet 500 mg PO BID Qty: 14 0RF Jardiance 25 mg tablet 25 mg PO DAILY metformin 500 mg tablet extended release 24 hr 1,000 mg PO BID alcohol swabs Pads, Medicated 0 pad topical lisinopril-hydrochlorothiazide 20-25 mg tablet 1 tab PO DAILY sertraline 100 mg tablet 100 mg PO DAILY clonazepam 1 mg tablet 1 mg PO TID PRN estazolam 2 mg tablet 2 mg PO BEDTIME PRN glycopyrrolate 1 mg tablet 1 mg PO BEDTIME PRN (DME) lancets 28 gauge misc See Rx Instructions topical .MEDSUPPLY Qty: 100 Rx Instructions: As directed test blood sugar at least 3 times a day amlodipine 5 mg tablet 5 mg PO DAILY diclofenac sodium 75 mg tablet,delayed release (DR/EC) 75 mg PO BID omeprazole 40 mg capsule,delayed release(DR/EC) 40 mg PO DAILY (DME) blood-glucose meter [FreeStyle Lite Meter] Kit See Rx Instructions .Route Rx Instructions: As directed test blood sugar at least 3 times a day (DME) FreeStyle Lite Strips Strip See Rx Instructions .Route Rx Instructions: As directed test blood sugar at least 3 times a day Trulicity 3 mg/0.5 mL pen injector 3 mg subcut QWEEK 84 Days Qty: 2 3RF acetaminophen [Tylenol 8 Hour] 650 mg tablet extended release 650 mg PO Q8H PRN (Reason: pain) Qty: 30 0RF amoxicillin-pot clavulanate 875-125 mg tablet 1 tab PO BID Qty: 14 0RF Interventions: ED Discharge Assessment Last Done: 06/29/25 14:24 Discharge Date/Time: 06/29/25 14:24 Print Language: Polish
[2025-06-29] MEDS: Diphth,Pertus(ACell),Tet Adult 0.5 ML SYRINGE IM (13:59)
[2025-06-29 14:24] VITALS: BP 126/79; PULSE 112; RESP 20; TEMP 36.3; O2SAT 94
--- OUTSIDE RECORDS SUMMARY | 2025-06-29 15:23 | XMS_ITS | Clinical Summary ---
Author Organization [facility] Address [address] [place] [address] Phone Care Team Providers Care Packaging Technician Name Role Phone Physician, No Pcp Primary Care Provider Unavaila ble Social History Tobacco Use Types Packs/Day Years [...] Health Maintenance Due Date Last Done Comments Colorectal Cancer Screening: Colonoscopy 1976 Diabetes: Annual Foot Exam 01/31/1986 Diabetes: Annual Retina Eye Exam 01/31/1986 Hepatitis B Vaccines (1 of 3 - 19+ 3-dose series) 01/31/1995 Cholesterol Screening (Lipid Panel) 05/28/2024 HIV Screening 05/28/2024 Hepatitis C Screening 05/28/2024 Medicare Annual Wellness Visit 05/28/2024 Social Influencers of Health Screening 05/28/2024 Depression Screening 08/19/2024 Diabetes: Annual Urine Albumin-Creatinine Ratio (uACR) 02/20/2025 Diabetes: Blood Sugar Contro l Test (HGBA1C) 02/20/2025 COVID-19 Vaccine (3 - 2024-2 6 season) 2025 12/28/2020, 11/30/2020 Influenza Vaccine (#1) 2025 Diabetes: Annual GFR (Glomerular Filtration Rate) 02/20/2026 02/20/2025 Hypertension/CHF/CAD Annual BMP Blood Test 02/20/2026 02/20/2025 DTaP,Tdap,and Td Vaccines (2 - Td or Tdap) 07/28/2027 07/28/2017 RSV Immunization Adult Patients (1 - 1-dose 75+ series) 01/31/2051 Pneumococcal Vaccine: Pediatrics (0 to 5 Years) [...] Procedure Name Priority Date/Time Associated Diagnosis Comments COMPREHENSIVE METABOLIC PANEL STAT 02/20/2025 12:00 AM EDT from Last 3 Months or Most Recently Relevant to Health Maintenance Results * (ABNORMAL) Comprehensive metabolic panel (02/20/2025 12:00 AM EDT) Sodium 137 133 - 145 mmol/L LAB CHEMISTRY METHOD 02/20/2025 1:46 AM EDT [facility] Potassium 3.9 3.5 - 5.5 mmol/L LAB CHEMISTRY METHOD 02/20/2025 1:46 AM [facility] Chloride 101 96 - 110 mmol/L LAB CHEMISTRY METHOD 02/20/2025 1:46 AM [facility] CO2 27 21 - 32 mmol/L LAB CHEMISTRY METHOD 02/20/2025 1:46 AM [facility] Anion Gap 9 3 - 11 LAB CHEMISTRY METHOD 02/20/2025 1:46 AM [facility] Glucose 186(H) 70 - 100 mg/dL LAB CHEMISTRY METHOD 02/20/2025 1:46 AM [facility] BUN 16 5 - 25 mg/dL LAB CHEMISTRY METHOD 02/20/2025 1:46 AM [facility] Creatinine 1.15 0.70 - 1.30 mg/dL LAB CHEMISTRY METHOD 02/20/2025 1:46 AM [facility] eGFR 78 >=60 mL/min/1. 73m2 LAB CHEMISTRY METHOD 02/20/2025 1:46 AM [facility] Comment:Calculation based on the Chronic Kidney Disease Epidemiology Collaboration (CKD-EPI) equation refit without adjustment for race. BUN/Creatinine Ratio 13.9 LAB CHEMISTRY METHOD 02/20/2025 1:46 AM [facility] Calcium 9.2 8.5 - 10.5 mg/dL LAB CHEMISTRY METHOD 02/20/2025 1:46 AM [facility] AST (SGOT) 56(H) 10 - 42 unit/L LAB CHEMISTRY METHOD 02/20/2025 1:46 AM [facility] ALT (SGPT) 57 10 - 60 unit/L LAB CHEMISTRY METHOD 02/20/2025 1:46 AM [facility] Alkaline Phosphatase 93 42 - 121 unit/L LAB CHEMISTRY METHOD 02/20/2025 1:46 AM [facility] Total Protein 7.9 6.0 - 8.0 g/dL LAB CHEMISTRY METHOD 02/20/2025 1:46 AM EDT [facility] Albumin 4.4 3.2 - 5.0 g/dL LAB CHEMISTRY METHOD 02/20/2025 1:46 AM EDT [facility] Total Bilirubin 0.9 0.0 - 1.4 mg/dL LAB CHEMISTRY METHOD 02/20/2025 1:46 AM EDT [facility] Blood Venous blood specimen / Unknown Venipuncture / Unknown 02/20/2025 12:00 AM EDT 02/20/2025 1:15 AM EDT us Ciro Ajay Curry DO LAB BLOOD ORDERABLES Rossy l Result [facility] [address] [place] [address], from Last 3 Months or Most Recently Relevant to Health Maintenance Insurance [facility] MEDIC[facility] Member Subscriber Plan / Payer (Ef fective 2025-Present) Name:JORDEN GAUTHIER Relation to Subscriber:Self Name:Jorden Gauthier Payer ID:[id number] Group ID:Not on file Type:Not on file Address: [address] [address] Care Teams Packaging Technician Relationship Specialty Start Date End Date Physician, No Pcp PCP - General 02/20/25
== END 2025-06-29 14:24 | disposition home or self-care (01) ==
PROVIDERS: Emergency Provider Emergency Medicine; PCP Internal Medicine
DX: S91.332A Puncture wound without foreign body, left foot, initial encounter (principal); M79.672 Pain in left foot; W45.0XXA Nail entering through skin, initial encounter; Y93.01 Activity, walking, marching and hiking; Y92.9 Unspecified place or not applicable; Y99.8 Other external cause status; Z23 Encounter for immunization; Z79.899 Other long term (current) drug therapy
CPT/HCPCS: 73630; 90471; 90715; 99282; 99284

== ENCOUNTER → 2025-06-29 13:41 | Outpatient (BNV) | payer OTHER, SELFPAY | PROVIDERS: Emergency Provider Emergency Medicine; PCP Internal Medicine; Visit Provider Radiology Diagnostic Radiology | DX: S91.332A Puncture wound without foreign body, left foot, initial encounter (principal); M77.32 Calcaneal spur, left foot | CPT/HCPCS: 73630 ==

== ENCOUNTER 2025-07-08 10:52 | Outpatient (REF) | payer OTHER, SELFPAY ==
[2025-07-08 17:50] LABS: MANUAL DIFF FLAG NO
[2025-07-08 17:57] LABS: Hematocrit 51.5 % (42.0-52.0); Hemoglobin 17.0 g/dl (14.0-18.0); Imm Gran Abs Auto 0.03 X10*3/uL (0.00-0.03); Imm Gran Pct Auto 0.3 % (0.0-0.4); Lymphocytes Absolute Auto 2.1 X10*3/uL (1.2-4.9); Mean Corpuscular HGB Conc 33.0 g/dl (31.0-36.0); Mean Corpuscular Hemoglobin 28.4 pg (27.0-33.0); Mean Corpuscular Volume 86.1 fL (80.0-98.0); NRBC Abs Auto 0.000 X10*3/uL (0.0-0.012); NRBC Pct Auto 0.0 /100WBC (0.0-0.2); Platelet Count 217 X10*3/uL (160-400); Red Blood Count 5.98 X10*6/uL (4.60-5.80); White Blood Count 10.6 X10*3/uL (4.8-10.8)
[2025-07-08 18:31] LABS: Alanine Aminotransferase 46 U/L (0-40); Albumin Level 5.0 g/dL (3.5-5.0); Alkaline Phosphatase 86 U/L (39-117); Anion Gap 14 (12-20); Aspartate Amino Transferase 49 U/L (5-37); Blood Urea Nitrogen 11 mg/dL (9-16); Calcium 9.6 mg/dL (8.4-10.2); Carbon Dioxide 25 mmol/L (22-29); Chloride 102 mmol/L (96-108); Estimated Glomerular Filt Rate > 60; Potassium 5.0 mmol/L (3.3-5.1); Sodium 136 mmol/L (135-145); Total Protein 8.6 g/dL (6.5-8.0)
[2025-07-08 18:50] LABS: Erythrocyte Sedimentation Rate 18 MM/HR (0-15)
== END 2025-07-08 10:53 | disposition home or self-care (01) ==
LOC: HO.HKASLDS 10:52
PROVIDERS: PCP Internal Medicine; Visit Provider Student in an Organized Health Care Education/Training Program
DX: S91.342A Puncture wound with foreign body, left foot, initial encounter (principal); E11.65 Type 2 diabetes mellitus with hyperglycemia; W22.8XXA Striking against or struck by other objects, initial encounter; Y92.9 Unspecified place or not applicable; Y93.9 Activity, unspecified; Y99.9 Unspecified external cause status
CPT/HCPCS: 36415; 80053; 85025; 85652; 86141; 97597; 99202

== ENCOUNTER 2025-07-08 10:52 | Outpatient (AMB) | payer OTHER, SELFPAY ==
--- NOTE | 2025-07-08 11:03 | A.OFFVIS_ITS ---
Vital Signs 07/08/25 11:05 Height 5 ft 3 in Weight 213 lb BMI 37.7 Intake Visit Reasons: stepped on nail left foot painfull x 1wk Intake Note: Jorden is a 50 year old male who presents today as a new patient for an evaluation of his left foot pain after stepping on a nail. Patient was seen at the ED on 06/29/25 where his puncture wound was cleansed and was given a tetanus vaccine and prescribed amoxicillin. Patient reports he is experiencing pain on the puncture wound site and has found no relief . Foot X ray IMPRESSION: No acute fracture or dislocation. No metallic or radiopaque foreign body. Plantar calcaneal spur, small. Allergies No Known Allergies (No Known Allergies*) Allergy (Verified 06/29/25 13:36) HPI Comments Details: The patient is a 50-year-old male with a past medical history as seen below presenting with a puncture wound on the left foot. The injury occurred when the patient recently stepped on a nail, followed by another nail in the same spot. The patient did not observe any pus but noted liquid discharge and persistent pain localized to the site of injury. 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 Patient states he experiences pain to the foot while ambulating and with pressure to the area. He denies any other pedal concerns. Patient was accompanied by his spouse. [facility] Medical History (Updated 07/10/25 @ 15:14 by Vanessa Mahoney DPM) Left foot pain Foreign body in left foot Puncture wound of left foot Depression HLD (hyperlipidemia) HTN (hypertension) T2DM (type 2 diabetes mellitus) Surgical History Hx of arthroscopy Hx of hernia repair Family History Father Alcoholism Diabetes mellitus HTN (hypertension) Mother No problems noted. Sister Diabetes mellitus Social History Alcohol intake: current Alcohol intake frequency: holidays/special occasions only Patient Tobacco Use Status: Never used Tobacco Review of Systems Const Details: - Musculoskeletal: Reports localized pain in the left foot, due to a puncture wound - Integumentary: Reports a puncture wound to the plantar aspect of the left foot. All systems reviewed & are unremarkable except as noted in HPI and below Physical Exam Vital Signs: BMI result Body Mass Index 37.7 Extrem Other: Left lower focused physical exam: Derm: Puncture wound noted to the plantar aspect of the left foot in the area of the midfoot with overlying hyperkeratotic lesion. No active bleeding, drainage, or purulence noted. No erythema noted. Minimal edema noted. Skin supple and turgor within normal limits. No maceration noted. Vascular: DP/PT pulses palpable. Capillary refill time less than 3 seconds. Temperature gradient warm to warm. Pedal hair diminished. No varicosities noted. Neuro: Protective sensation is grossly intact to light touch. MSK: Pain on palpation to the site of the puncture wound. No crepitus or fluctuance noted. Range of motion of the forefoot hindfoot and ankle within normal limits. No other gross abnormalities noted. Office Procedures AMB Debridement/Avulsion Podia Details: Debrided the puncture wound and hyperkeratotic area associated with the wound with a 15. Blade without any incidents. No purulence, bleeding, or active drainage noted upon debridement. Applied Betadine and a Band-Aid to the area. [id number] of active wound <20cm Procedure code (CPT) selection complete Results Reviewed Results Reviewed: Podiatry read of left foot x-ray (06/29/2025): No signs of foreign body noted to the left foot. No soft tissue emphysema noted. Bone spurs noted to the plantar aspect of the calcaneus and the posterior aspect of the calcaneus in the area of the Achilles tendon insertion. No acute fractures or dislocations noted. Left foot x-ray (06/29/2025): FINDINGS: No metallic or radiopaque foreign body. No subcutaneous emphysema. No acute cortical disruption or gross malalignment. Plantar calcaneus spur. Small exostosis at the Achilles tendon insertion. IMPRESSION: No acute fracture or dislocation. No metallic or radiopaque foreign body. Plantar calcaneal spur, small. Assessment & Plan Assessment & Plan (1) Puncture wound of left foot: Code(s): S91.332A - Puncture wound without foreign body, left foot, initial encounter Category: Medical Qualifiers: Encounter type: initial encounter Qualified Code(s): S91.332A - Puncture wound without foreign body, left foot, initial encounter (2) T2DM (type 2 diabetes mellitus): Code(s): E11.9 - Type 2 diabetes mellitus without complications Category: Medical Qualifiers: Diabetes mellitus complication status: with hyperglycemia Diabetes mellitus dedicated intermodal truck driver insulin use: unspecified custodial insulin use status Qualified Code(s): E11.65 - Type 2 diabetes mellitus with hyperglycemia (3) Foreign body in left foot: Code(s): S90.852A - Superficial foreign body, left foot, initial encounter Category: Medical Qualifiers: Encounter type: initial encounter Qualified Code(s): S90.852A - Superficial foreign body, left foot, initial encounter (4) Left foot pain: Code(s): M79.672 - Pain in left foot Category: Medical Plan Patient was informed and verbally consented to the use of an ambient scribe for clinic note documentation during this visit. I discussed with the patient the management of the puncture wound, including the importance of keeping the area clean and applying Betadine and a Band-Aid to the area. I explained the need for antibiotics and pain management with Tylenol. I also informed the patient about the follow-up appointment in two weeks to evaluate healing. I advised the patient to contact us if there are signs of infection, such as increased redness or pus. - Re-sent prescription for Augmentin to new pharmacy. - Prescribe Tylenol 650 mg to be taken PRN for pain. - Debrided the puncture wound and hyperkeratotic area. - Shave callus to alleviate pain caused by thickened skin. - Patient is to keep the area clean dry and intact. - Patient may be weight-bearing as tolerated to the left lower extremity, using pain as a guide. - Advised patient to wear supportive shoe gear and to avoid barefoot walking. - Ordered labs to be performed prior to next visit. RTC in 2 weeks. Orders: Orders CRP High Sensitivity 07/08/25 E11.65 - Type 2 diabetes mellitus with hyperglycemia, M79.672 - Pain in left foot, S90.852A - Superficial foreign body, left foot, initial encounter, S91.332A - Puncture wound without foreign body, left foot, initial encounter Complete Blood Count Auto Diff 07/08/25 E11.65 - Type 2 diabetes mellitus with hyperglycemia, M79.672 - Pain in left foot, S90.852A - Superficial foreign body, left foot, initial encounter, S91.332A - Puncture wound without foreign body, left foot, initial encounter Comprehensive Met. Panel 07/08/25 E11.65 - Type 2 diabetes mellitus with hyperglycemia, M79.672 - Pain in left foot, S90.852A - Superficial foreign body, left foot, initial encounter, S91.332A - Puncture wound without foreign body, left foot, initial encounter AMB Hemoglobin A1c 07/08/25 E11.65 - Type 2 diabetes mellitus with hype rglycemia, M79.672 - Pain in left foot, S90.852A - Superficial foreign body, left foot, initial encounter, S91.332A - Puncture wound without foreign body, left foot, initial encounter AMB Debridement/Avulsion Podiatry 07/08/25 E11.65 - Type 2 diabetes mellitus with hyperglycemia, M79.672 - Pain in left foot, S90.852A - Superficial foreign body, left foot, initial encounter, S91.332A - Puncture wound without foreign body, left foot, initial encounter Erythrocyte Sedimentation Rate 07/08/25 E11.65 - Type 2 diabetes mellitus with hyperglycemia, M79.672 - Pain in left foot, S90.852A - Superficial foreign body, left foot, initial encounter, S91.332A - Puncture wound without foreign body, left foot, initial encounter Medications: New amoxicillin-pot clavulanate 875-125 mg 1 tab PO BID 14 tabs 0RF S90.852A - Superficial foreign body, left foot, initial encounter, S91.332A - Puncture wound without foreign body, left foot, initial encounter acetaminophen ER (Tylenol 8 Hour) 650 mg PO Q8H PRN 30 tabs 0RF pain M79.672 - Pain in left foot, S90.852A - Superficial foreign body, left foot, initial encounter, S91.332A - Puncture wound without foreign body, left foot, initial encounter Discontinued amoxicillin-pot clavulanate 875-125 mg Discontinued Reason: Doctor's Order 1 tab PO BID 14 tabs 0RF Coding Level of Care Code New Pt Level 4 (74768) Diagnoses Puncture wound of left foot, initial encounter S91.332A Encounter type: initial encounter Type 2 diabetes mellitus with hyperglycemia, unspecified whether dedicated intermodal truck driver insulin use E11.65 Diabetes mellitus complication status: with hyperglycemia Diabetes mellitus dedicated intermodal truck driver insulin use: unspecified dedicated intermodal truck driver insulin use status Foreign body in left foot, initial encounter S90.852A Encounter type: initial encounter Left foot pain M79.672 CPT Codes Skin Debridement - CPT: 41458-[id number] of active wound <20cm ([id number]) Time Spent (min) 55 Comment 6 mins for procedure
[2025-07-08 11:05] VITALS: BMI 37.7
--- OUTSIDE RECORDS SUMMARY | 2025-07-08 16:26 | XMS_ITS | Clinical Summary ---
Author Organization [facility] Address [address] [place] [address] Phone Care Team Providers Care Licensed And Certified Midwife Name Role Phone Physician, No Pcp Primary [...] LAB CHEMISTRY METHOD 02/20/2025 1:46 AM EDT [facility] Potassium 3.9 3.5 - 5.5 mmol/L LAB CHEMISTRY METHOD 02/20/2025 1:46 AM [facility] Chloride 101 96 - 110 mmol/L LAB CHEMISTRY METHOD 02/20/2025 1:46 AM [facility] CO2 27 21 - 32 mmol/L LAB CHEMISTRY METHOD 02/20/2025 1:46 AM [facility] Anion Gap 9 3 - 11 LAB CHEMISTRY METHOD 02/20/2025 1:46 AM [facility] Glucose 186(H) 70 - 100 mg/dL LAB CHEMISTRY METHOD 02/20/2025 1:46 AM [facility] BUN 16 5 - 25 mg/dL LAB CHEMISTRY METHOD 02/20/2025 1:46 AM [facility] Creatinine 1.15 0.70 - 1.30 mg/dL LAB CHEMISTRY METHOD 02/20/2025 1:46 AM [facility] eGFR 78 >=60 mL/min/1. 73m2 LAB CHEMISTRY METHOD 02/20/2025 1:46 AM [facility] Comment:Calculation based on the Chronic Kidney Disease Epidemiology Collaboration (CKD-EPI) equation refit without adjustment for race. BUN/Creatinine Ratio 13.9 LAB CHEMISTRY METHOD 02/20/2025 1:46 AM [facility] Calcium 9.2 8.5 - 10.5 mg/dL LAB CHEMISTRY METHOD 02/20/2025 1:46 AM [facility] AST (SGOT) 56(H) 10 - 42 unit/L LAB CHEMISTRY METHOD 02/20/2025 1:46 AM [facility] ALT (SGPT) 57 10 - 60 unit/L LAB CHEMISTRY METHOD 02/20/2025 1:46 AM [facility] Alkaline Phosphatase 93 42 - 121 unit/L LAB CHEMISTRY METHOD 02/20/2025 1:46 AM [facility] Total Protein 7.9 6.0 - 8.0 g/dL LAB CHEMISTRY METHOD 02/20/2025 1:46 AM EDT [facility] Albumin 4.4 3.2 - 5.0 g/dL LAB CHEMISTRY METHOD 02/20/2025 1:46 AM EDT [facility] Total Bilirubin 0.9 0.0 - 1.4 mg/dL LAB CHEMISTRY METHOD 02/20/2025 1:46 AM EDT [facility] Blood Venous blood specimen / Unknown Venipuncture / Unknown 02/20/2025 12:00 AM EDT 02/20/2025 1:15 AM EDT us Ciro Ajay Curry DO LAB BLOOD ORDERABLES Rossy l Result [facility] [address] [place] [address], from Last 3 Months or Most Recently Relevant to Health Maintenance Insurance [facility] MEDIC[facility] Member Subscriber Plan / Payer (Ef fective 2025-Present) Name:JORDEN GAUTHIER Relation to Subscriber:Self Name:Jorden Gauthier Payer ID:[id number] Group ID:Not on file Type:Not on file Address: [address] [address] Care Teams Licensed And Certified Midwife Relationship Specialty Start Date End Date Physician, No Pcp PCP - General 02/20/25
== END 2025-07-08 11:33 | disposition home or self-care (01) ==
LOC: HO.HPODS 10:52
PROVIDERS: PCP Internal Medicine; Visit Provider Student in an Organized Health Care Education/Training Program
DX: S91.332A Puncture wound without foreign body, left foot, initial encounter (principal); E11.65 Type 2 diabetes mellitus with hyperglycemia; S90.852A Superficial foreign body, left foot, initial encounter; M79.672 Pain in left foot
CPT/HCPCS: 97597; 99204